=== PATIENT | female | born 1960 | race Caucasian/White ===

== ENCOUNTER → 2017-03-06 | Outpatient (CLI) | payer OTHER ==
--- NOTE | 2017-03-06 10:34 | REPMRS ---
Patient History The patient states she had a clinical breast exam in January 2017.Patient is postmenopausal. No known family history of cancer. 15 pound weight gain since last mammogram. Digital Mammo Screening Bilat: March 06, 2017 - Exam #: [id number] Bilateral CC and MLO view(s) were taken. Technologist: Elise Luu, Technologist Prior study comparison: 2014, digital bilateral screening mammo, performed at [facility]. FINDINGS: The breast tissue is heterogeneously dense. This may lower the sensitivity of mammography. There has been no change in the appearance of the mammogram from the prior studies. There is a moderate amount of residual fibroglandular tissue which is fairly symmetric. There is no interval development of dominant mass, areas of architectural distortion, or clustered microcalcification typical of malignancy. ASSESSMENT: BI-RADS/ACR category 1 mammogram. Negative. Recommendation Routine screening mammogram in 1 year (for women over age 40). This mammogram was interpreted with the aid of an FDA-approved computer-aided dectection system. Electronically Signed By: Contreras Ojeda MD 03/06/17 [id number]
== END ==
LOC: M RAD 08:07
PROVIDERS: ATTEND Nurse Practitioner Adult Health
DX: Z12.31 Encounter for screening mammogram for malignant neoplasm of breast (principal)

== ENCOUNTER → 2018-03-07 | Outpatient (CLI) | payer OTHER | LOC: M RAD 08:41 | DX: Z12.31 Encounter for screening mammogram for malignant neoplasm of breast (principal) | CPT/HCPCS: 77067 ==

== ENCOUNTER → 2019-02-25 | Outpatient (REF) | payer OTHER | LOC: M SFHCLERA 08:24 | PROVIDERS: ATTEND Family Medicine | DX: Z13.220 Encounter for screening for lipoid disorders (principal); Z53.9 Procedure and treatment not carried out, unspecified reason ==

== ENCOUNTER → 2019-03-10 | Outpatient (CLI) | payer OTHER ==
[2019-03-10 08:28] LABS: CHOLESTEROL RISK RATIO 2.289 (<5)
--- NOTE | 2019-03-10 10:58 | REPMRS ---
Patient History The patient states she has not had a clinical breast exam in over a year. No known family history of cancer. Digital Mammo Screening Bilat: March 10, 2019 - Exam #: [id number] Bilateral CC and MLO view(s) were taken. Technologist: Elise Luu, Technologist Prior study comparison: March 07, 2018, bilateral digital mammo screening bilat performed at [facility]. March 06, 2017, bilateral digital mammo screening bilat performed at [facility]. FINDINGS: The breast tissue is heterogeneously dense. This may lower the sensitivity of mammography. There is a moderate amount of heterogeneously dense fibroglandular tissue which is fairly symmetric. There is no interval development of dominant mass, architectural distortion, or grouped microcalcification typical of malignancy. There has been no change in the appearance of the mammogram from the prior studies. 3-D tomosynthesis shows no additional findings. Assessment: BI-RADS/ACR category 1 mammogram. Negative Mammogram. Recommendation Routine screening mammogram of both breasts in 1 year (for women over age 40). This patient's Lifetime Breast Cancer RIsk is estimated at 7.9 %. This mammogram was interpreted with the aid of an FDA-approved computer-aided dectection system. Electronically Signed By: Grabiel Prakash MD 03/10/19 [id number]
--- NOTE | 2019-03-10 11:04 | REP ---
Urinary tract sonography: History: Incidental cyst left kidney noted on unrelated imaging test. Reevaluation. No comparison imaging is available. Sonographic findings: Scanning at the level urinary bladder shows no abnormality. Visualized bladder fitch are smooth. Renal cortical echogenicity pattern is normal and contours are smooth. There is a cyst in the right mid kidney measuring 1.8 x 1.7 x 1.7 cm. No mass lesion is seen on either side. No left renal cyst is observed. No hydronephrosis is seen. There is a hyperechoic focus 2.6 mm in diameter in the left mid kidney which could be an intrarenal calculus. Left renal dimensions are 10.2 x 5.2 x 5.0 cm. Right kidney measures 10.7 x 4.8 x 3.4 cm. Impression: 1.8 cm cyst right mid kidney. Question 3 mm intrarenal calculus left mid kidney. No hydronephrosis or other abnormality. Electronically Signed by Joe Prakash MD 03/10/2019 07:32 P
== END ==
LOC: M RAD 07:16 → M LAB 07:16
PROVIDERS: ATTEND Family Medicine
DX: Z12.31 Encounter for screening mammogram for malignant neoplasm of breast (principal)

== ENCOUNTER → 2020-06-07 | Outpatient (CLI) | payer OTHER ==
--- NOTE | 2020-06-07 09:36 | REPMRS ---
Patient History The patient states she had a clinical breast exam in April 2020. No known family history of cancer. Digital Woman Screen Mammo: June 07, 2020 - Exam #: [id number] Bilateral CC and MLO view(s) were taken. Technologist: RT Deion Prior study comparison: March 10, 2019, bilateral digital mammo screening bilat, performed at [facility]. March 07, 2018, bilateral digital mammo screening bilat, performed at [facility]. March 06, 2017, bilateral digital mammo screening bilat, performed at [facility]. FINDINGS: The breast tissue is heterogeneously dense. This may lower the sensitivity of mammography. The Volpara volumetric breast density category is: C. There is a moderate amount of heterogeneously dense fibroglandular tissue which is fairly symmetric. There is no interval development of dominant mass, architectural distortion, or grouped microcalcification typical of malignancy. There has been no change in the appearance of the mammogram from the prior studies. 3-D tomosynthesis shows no additional findings. Assessment: BI-RADS/ACR category 1 mammogram. Negative Mammogram. Recommendation Routine screening mammogram of both breasts in 1 year (for women over age 40). This patient's Lifetime Breast Cancer RIsk is estimated at 7.7 %. This mammogram was interpreted with the aid of an FDA-approved computer-aided dectection system. Electronically Signed By: Grabiel Prakash MD 06/07/20 0998
== END ==
LOC: M WHC 07:48
PROVIDERS: ATTEND Nurse Practitioner Adult Health
DX: Z01.419 Encounter for gynecological examination (general) (routine) without abnormal findings (principal); Z12.31 Encounter for screening mammogram for malignant neoplasm of breast

== ENCOUNTER → 2020-09-01 | Outpatient (CLI) | payer OTHER ==
[~2020-09-01] MED LIST: D31000CA4 PO
== END ==
LOC: M LABSMTC 11:31
PROVIDERS: ATTEND Anesthesiology
DX: Z01.812 Encounter for preprocedural laboratory examination (principal); Z20.822 Contact with and (suspected) exposure to COVID-19

== ENCOUNTER 2020-09-06 07:39 | Day surgery (SDC) | payer OTHER ==
[~2020-09-06] VITALS: Ht 177.8 cm; Wt 79.4 kg
[~2020-09-06 07:39] MED LIST changes: +LIDOCAINE 2% 100MG/5ML SDV (FOR ANES.) As Ordered ONE; +NS 1,000 ML IV ONE; +propofoL 200 MG/20 ML VIAL As Ordered ONE
--- NOTE | 2020-09-06 09:35 | ROOR ---
Patient Name: Terra Short Procedure Date: 09/06/2020 8:48 AM Date of : 1960 Age: 59 Room: [facility] Gender: Female Note Status: Finalized Procedure: Colonoscopy Indications: Screening for colorectal malignant neoplasm Providers: Dominick Lomeli MD Referring MD: PARTICIA ARCINIEGA MD Requesting Provider: Medicines: Monitored Anesthesia Care Complications: No immediate complications. Procedure: Pre-Anesthesia Assessment: - Prior to the procedure, a History and Physical was performed, and patient medications and allergies were reviewed. The patient is competent. The risks and benefits of the procedure and the sedation options and risks were discussed with the patient. All questions were answered and informed consent was obtained. Patient identification and proposed procedure were verified by the physician, the nurse and the anesthesiologist in the procedure room. Mental Status Examination: alert and oriented. Airway Examination: normal oropharyngeal airway and neck mobility. Respiratory Examination: clear to auscultation. CV Examination: normal. Prophylactic Antibiotics: The patient does not require prophylactic antibiotics. Prior Anticoagulants: The patient has taken no previous anticoagulant or antiplatelet agents. ASA Grade Assessment: II - A patient with mild systemic disease. After reviewing the risks and benefits, the patient was deemed in satisfactory condition to undergo the procedure. The anesthesia plan was to use monitored anesthesia care (MAC). Immediately prior to administration of medications, the patient was re-assessed for adequacy to receive sedatives. The heart rate, respiratory rate, oxygen saturations, blood pressure, adequacy of pulmonary ventilation, and response to care were monitored throughout the procedure. The physical status of the patient was re-assessed after the procedure. The Colonoscope was introduced through the anus and advanced to the terminal ileum, with identification of the appendiceal orifice and IC valve. The colonoscopy was performed without difficulty. The patient tolerated the procedure well. The quality of the bowel preparation was good. The terminal ileum, ileocecal valve, appendiceal orifice, and rectum were photographed. Scope insertion time was 3 minutes. Scope withdrawal time was 9 minutes. The total duration of the procedure was 12 minutes. Findings: The perianal and digital rectal examinations were normal. The terminal ileum appeared normal. A 10 mm polyp was found in the ascending colon. The polyp was sessile. The polyp was removed with a cold snare. Resection and retrieval were complete. Verification of patient identification for the specimen was done by the physician and nurse using the patient's name, date and medical record number. Estimated blood loss was minimal. To close a defect after polypectomy, one hemostatic clip was successfully placed. There was no bleeding at the end of the procedure. A few small-mouthed diverticula were found in the sigmoid colon. There was no evidence of diverticular bleeding. Non-bleeding external and internal hemorrhoids were found during retroflexion. The hemorrhoids were medium-sized. Impression: - The examined portion of the ileum was normal. - One 10 mm polyp in the ascending colon, removed with a cold snare. Resected and retrieved. Clip was placed. - Mild diverticulosis in the sigmoid colon. There was no evidence of diverticular bleeding. - Non-bleeding external and internal hemorrhoids. Recommendation: - Patient has a contact number available for emergencies. The signs and symptoms of potential delayed complications were discussed with the patient. Return to normal activities tomorrow. Written discharge instructions were provided to the patient. - High fiber diet. - Continue present medications. - Await pathology results. - Repeat colonoscopy in 3 - 5 years for surveillance based on pathology results. - Telephone GI clinic for pathology results in 2 weeks. - Return to primary care physician. Procedure Code(s): --- Professional --- 14504, Colonoscopy, flexible; with removal of tumor(s), polyp(s), or other lesion(s) by snare technique Diagnosis Code(s): --- Professional --- Z12.11, Encounter for screening for malignant neoplasm of colon K64.8, Other hemorrhoids K63.5, Polyp of colon K57.30, Diverticulosis of large intestine without perforation or abscess without bleeding CPT copyright 2019 [employer]. All rights reserved. The codes documented in this report are preliminary and upon mock up builder review may be revised to meet current compliance requirements. Dominick Lomeli MD Dominick Lomeli MD 09/06/2020 9:35:02 AM Electronically signed by Dominick Lomeli MD Number of Addenda: 0 Note Initiated On: 09/06/2020 8:48 AM Estimated Blood Loss: Estimated blood loss was minimal.
[2020-09-06 09:45] VITALS: BP 130/82
== END 2020-09-06 09:58 | disposition home or self-care (01) ==
LOC: M OPP 07:39
PROVIDERS: ATTEND Internal Medicine Gastroenterology
DX: Z12.11 Encounter for screening for malignant neoplasm of colon (principal); D12.2 Benign neoplasm of ascending colon; K57.30 Diverticulosis of large intestine without perforation or abscess without bleeding; K64.8 Other hemorrhoids; N28.1 Cyst of kidney, acquired; Z88.0 Allergy status to penicillin; Z88.2 Allergy status to sulfonamides; Z91.011 Allergy to milk products; Z91.018 Allergy to other foods; Z91.030 Bee allergy status; Z79.899 Other long term (current) drug therapy; Z83.79 Family history of other diseases of the digestive system

== ENCOUNTER 2020-09-19 08:43 | Emergency (ER) | payer OTHER ==
[~2020-09-19] VITALS: Ht 172.7 cm; Wt 81.7 kg
[~2020-09-19 08:43] MED LIST changes: -LIDOCAINE 2% 100MG/5ML SDV (FOR ANES.) As Ordered ONE; -NS 1,000 ML IV ONE; -propofoL 200 MG/20 ML VIAL As Ordered ONE
--- OUTSIDE RECORDS SUMMARY | 2020-09-19 08:49 | CCD | Continuity of Care Document ---
Author Author Terra [facility]GUYEN [facility]- [facility] Organization Unknown Address [address], [address] [place] [address] Phone [phone] Care Team Providers Care Day Care Home Mother Name Role Phone Cami Knowles P.A.-C AUTM [phone] David Pettit M.D. AUTM [phone] Problems Description No Active Problems Social History Type Date Description Comments Sex Unknown ETOH Use Denies alcohol use Tobacco Use Start: Unknown Patient has never smoked Allergies, Adverse Reactions, Alerts Active Allergies Reaction Severity Comments Date Penicillin 01/20/2018 Sulfa Antibiotics 01/20/2018 Bee Sting 08/23/2020 Medications Active Medications SIG Qnty Indications Ordering Provide r Date Suprep Bowel Prep Kit 17.5-3.13-1.6GM/177ML Solution take per doctor's bowel prep instructions. 354ml Z12.1 1 Justice Grady MD 08/23/[address] take 4 tabs by mouth prior to procedure per instructions. 4tabs Z12.11 Justice Grady MD 08/23/2020 Vitamin D (Cholecalciferol) 25mcg (1000 Ut) Capsules Daily Unknown Immunizations Description No Information Available Vital Signs Date Vital Result Comment 08/23/2020 10:12am BP Systolic 120 mmHg BP Diastolic 82 mmHg Height 70 inches 5'10" Weight 176.00 lb BMI (Body Mass Index) 25.3 kg/m2 Wallace Body Weight 150 lb Weight 79.834 kg BSA (Body Surface Area) 1.98 m2 04/02/2018 8:19am BP Systolic 134 mmHg BP Diastolic 82 mmHg Heart Rate 82 /min O2 % BldC Oximetry 98 % Room Air Height 70 inches 5'10" Weight 180.00 lb BMI (Body Mass Index) 25.8 kg/m2 Wallace Body Weight 150 lb Weight 81.648 kg BSA (Body Surface Area) 2.00 m2 Results Description No Information Available Procedures Description No Information Available Medical Devices Description No Information Available Encounters Description No Information Available Assessments Date Code Description Provider 08/23/2020 Z12.11 Encounter for screening for luisa gnant neoplasm of colon RAULITO Slade Plan of Treatment 08/23/2020 - RAULITO Slade* Z12.11 Encounter for screening for malignant neoplasm of colon * * New Medication:* Suprep Bowel Prep Kit 17.5-3.13-1.6 GM/177ML * Dulcolax 5 mg * New Orders:* Colonoscopy, Ordered: 08/23/20 * Comments:* Will arrange for colonoscopy. Reviewed risks and benefits of the procedure, as well as other options, with the patient. Bowel prep procedure was discussed with patient, as well as risks and side effects associated with the bowel prep. Patient verbalized understanding of all of the above and is in agreement to proceed. Patient will seek medical attention for any acute changes. Will monitor. * Follow up:* As scheduled, sooner if needed. Functional Status Functional Condition Comment Date Status Independent with all ADL's Activ e Independent with all IADL's Acti ve Mental Status Mental Condition Comment Date Status None Active Can understand information Activ e Referrals Refer to Reason for Referral Status Appt Date Dominick Lomeli M.D. [facility]SULT Created 08/[address] [place] [address], [address] [place] [address] [phone]
--- OUTSIDE RECORDS SUMMARY | 2020-09-19 08:49 | CCD ---
Author Author [facility] Organization [facility] Address Unknown Phone Unavailable Care Team Providers [employer] Name Role Phone David Araya Unavailable Unavailable David Araya Unavailable Unavailable David Araya Unavailable Unavailable David Araya Unavailable Unavailable Knowles, M Cami PA-C Unavailable Unavailable Knowles, M Cami PA-C Unavailable Unavailable Knowles, M Cami PA-C Unavailable Unavailable Knowles, M Cami PA-C Unavailable Unavailable Knowles, M Cami PA-C Unavailable Unavailable Knowles, M Cami PA-C Unavailable Unavailable Knowles, M Cami PA-C Unavailable Unavailable Knowles, M Cami PA-C Unavailable Unavailable Knowles, M Cami PA-C Unavailable Unavailable Knowles, M Cami PA-C Unavailable Unavailable Knowles, M Cami PA-C Unavailable Unavailable Knowles, M Cami PA-C Unavailable Unavailable Knowles, M Cami PA-C Unavailable Unavailable Knowles, M Cami PA-C Unavailable Unavailable Knowles, M Cami PA-C Unavailable Unavailable Knowles, M Cami PA-C Unavailable Unavailable Knowles, M Cami PA-C Unavailable Unavailable Knowles, M Cami PA-C Unavailable Unavailable Knowles, M Cami PA-C Unavailable Unavailable Knowles, M Cami PA-C Unavailable Unavailable Knowles, M Cami PA-C Unavailable Unavailable Knowles, M Cami PA-C Unavailable Unavailable Knowles, M Cami PA-C Unavailable Unavailable Knowles, M Cami PA-C Unavailable Unavailable Knowles, M Cami PA-C Unavailable Unavailable Knowles, M Cami PA-C Unavailable Unavailable Knowles, M Cami PA-C Unavailable Unavailable Knowles, M Cami PA-C Unavailable Unavailable Knowles, M Cami PA-C Unavailable Unavailable Knowles, M Cami PA-C Unavailable Unavailable Knowles, M Caim PA-C Unavailable Unavailable Knowles, M Cami PA-C Unavailable Unavailable Knowles, M Cami PA-C Unavailable Unavailable ARCINIEGAPATRICIA OTERO MD Unavailable Unavailable ARCINIEGAPATRICIA OTERO MD Unavailable Unavailable ARCINIEGAPATRICIA OTERO MD Unavailable Unavailable ARCINIEGAPATRICIA OTERO MD Unavailable Unavailable ARCINIEGAPATRICIA OTERO MD Unavailable Unavailable ARCINIEGAPATRICIA OTERO MD Unavailable Unavailable ARCINIEGAPATRICIA OTERO MD Unavailable Unavailable ARCINIEGAPATRICIA OTERO MD Unavailable Unavailable ARCINIEGAPATRICIA OTERO MD Unavailable Unavailable ARCINIEGAPATRICIA OTERO MD Unavailable Unavailable ARCINIEGAPATRICIA OTERO MD Unavailable Unavailable ARCINIEGAPATRICIA OTERO MD Unavailable Unavailable ARCINIEGAPATRICIA OTERO MD Unavailable Unavailable ARCINIEGAPATRICIA OTERO MD Unavailable Unavailable ARCINIEGAPATRICIA OTERO MD Unavailable Unavailable ARCINIEGAPATRICIA OTERO MD Unavailable Unavailable ARCINIEGAPATRICIA OTERO MD Unavailable Unavailable ARCINIEGAPATRICIA OTERO MD Unavailable Unavailable ARCINIEGAPATRICIA OTERO MD Unavailable Unavailable ARCINIEGAPATRICIA OTERO MD Unavailable Unavailable ARCINIEGAPATRICIA OTERO MD Unavailable Unavailable ARCINIEGAPATRICIA OTERO MD Unavailable Unavailable ARCINIEGAPATRICIA OTERO MD Unavailable Unavailable ARCINIEGAPATRICIA OTERO MD Unavailable Unavailable ARCINIEGAPATRICIA OTERO MD Unavailable Unavailable ARCINIEGAPATRICIA OTERO MD Unavailable Unavailable ARCINIEGAPATRICIA MD Unavailable Unavailable ARCINIEGAPATRICIA MD Unavailable Unavailable ARCINIEGAPATRICIA OTERO MD Unavailable Unavailable ARCINIEGAPATRICIA OTERO MD Unavailable Unavailable ARCINIEGAPATRICIA OTERO MD Unavailable Unavailable ARCINIEGAPATRICIA OTERO MD Unavailable Unavailable ARCINIEGAPATRICIA OTERO MD Unavailable Unavailable ARCINIEGAPATRICIA MD Unavailable Unavailable ARCINIEGAPATRICIA OTERO MD Unavailable Unavailable ARCINIEGAPATRICIA MD Unavailable Unavailable ARCINIEGAPATRICIA MD Unavailable Unavailable ARCINIEGAPATRICIA MD Unavailable Unavailable ARCINIEGAPATRICIA MD Unavailable Unavailable ARCINIEGAPATRICIA MD Unavailable Unavailable ARCINIEGAPATRICIA MD Unavailable Unavailable ARCINIEGAPATRICIA MD Unavailable Unavailable ARCINIEGA, PATRICIA MD Unavailable Unavailable ARCINIEGA PATRICIA MD Unavailable Unavailable ARCINIEGA PATRICIA MD Unavailable Unavailable ARCINIEGA, PATRICIA MD Unavailable Unavailable ARCINIEGA PATRICIA MD Unavailable Unavailable ARCINIEGA PATRICIA MD Unavailable Unavailable ARCINIEGA PATRICIA MD Unavailable Unavailable ARCINIEGA PATRICIA MD Unavailable Unavailable ARCINIEGA PATRICIA MD Unavailable Unavailable ARCINIEGA PATRICIA MD Unavailable Unavailable ARCINIEGA PATRICIA MD Unavailable Unavailable ARCINIEGA PATRICIA MD Unavailable Unavailable ARCINIEGA PATRICIA MD Unavailable Unavailable ARCINIEGA PATRICIA MD Unavailable Unavailable ARCINIEGA PATRICIA MD Unavailable Unavailable ARCINIEGA PATRICIA MD Unavailable Unavailable ARCINIEGA PATRICIA MD Unavailable Unavailable ARCINIEGA PATRICIA MD Unavailable Unavailable ARCINIEGA PATRICIA MD Unavailable Unavailable ARCINIEGA PATRICIA MD Unavailable Unavailable ARCINIEGA PATRICIA MD Unavailable Unavailable ARCINIEGA PATRICIA MD Unavailable Unavailable ARCINIEGAPATRICIA MD Unavailable Unavailable ARCINIEGA PATRICIA MD Unavailable Unavailable ARCINIEGA, PATRICIA MD Unavailable Unavailable ARCINIEGA, PATRICIA MD Unavailable Unavailable ARCINIEGA, PATRICIA MD Unavailable Unavailable LAU, REJI LIU TRUCK RENTAL SERVICE ATTENDANT Unavailable Unavailable LAU, REJI LIU TRUCK RENTAL SERVICE ATTENDANT Unavailable Unavailable LAU, REJI LIU TRUCK RENTAL SERVICE ATTENDANT Unavailable Unavailable LAU, REJI LIU TRUCK RENTAL SERVICE ATTENDANT Unavailable Unavailable LAU, REJI LIU TRUCK RENTAL SERVICE ATTENDANT Unavailable Unavailable LAU, REJI LIU TRUCK RENTAL SERVICE ATTENDANT Unavailable Unavailable LAU, REJI LIU TRUCK RENTAL SERVICE ATTENDANT Unavailable Unavailable LAU, REJI LIU TRUCK RENTAL SERVICE ATTENDANT Unavailable Unavailable LAU, REJI LIU TRUCK RENTAL SERVICE ATTENDANT Unavailable Unavailable LAU, REJI LIU TRUCK RENTAL SERVICE ATTENDANT Unavailable Unavailable LAU, REJI LIU TRUCK RENTAL SERVICE ATTENDANT Unavailable Unavailable LAU, REJI LIU TRUCK RENTAL SERVICE ATTENDANT Unavailable Unavailable LAU, REJI LIU TRUCK RENTAL SERVICE ATTENDANT Unavailable Unavailable LAU, REJI LIU TRUCK RENTAL SERVICE ATTENDANT Unavailable Unavailable LAU, REJI LIU TRUCK RENTAL SERVICE ATTENDANT Unavailable Unavailable LAU, REJI LIU TRUCK RENTAL SERVICE ATTENDANT Unavailable Unavailable LAU, REJI LIU TRUCK RENTAL SERVICE ATTENDANT Unavailable Unavailable LAU, REJI LIU TRUCK RENTAL SERVICE ATTENDANT Unavailable Unavailable LAU, REJI LIU TRUCK RENTAL SERVICE ATTENDANT Unavailable Unavailable LAU, REJI LIU TRUCK RENTAL SERVICE ATTENDANT Unavailable Unavailable LAU, REJI LIU TRUCK RENTAL SERVICE ATTENDANT Unavailable Unavailable LAU, REJI LIU TRUCK RENTAL SERVICE ATTENDANT Unavailable Unavailable LAU, REJI LIU TRUCK RENTAL SERVICE ATTENDANT Unavailable Unavailable KnowlesAshwin Cami PA-C Unavailable Unavailable KnowlesAshwin Cami PA-C Unavailable Unavailable Knowles M Cami PA-C Unavailable Unavailable Knowles M Cami PA-C Unavailable Unavailable Knowles, M Cami PA-C Unavailable Unavailable Knowles, M Cami PA-C Unavailable Unavailable Knowles, M Cami PA-C Unavailable Unavailable Knowles, M Cami PA-C Unavailable Unavailable Knowles, M Cami PA-C Unavailable Unavailable Knowles, M Cami PA-C Unavailable Unavailable Knowles, M Cami PA-C Unavailable Unavailable Knowles, M Cami PA-C Unavailable Unavailable Knowles, M Cami PA-C Unavailable Unavailable Knowles, M Cami PA-C Unavailable Unavailable Knowles, M Cami PA-C Unavailable Unavailable Knowles, M Cami PA-C Unavailable Unavailable Knowles, M Cami PA-C Unavailable Unavailable Knowles, M Cami PA-C Unavailable Unavailable Knowles, M Cami PA-C Unavailable Unavailable Knowles, M Cami PA-C Unavailable Unavailable Knowles, M Cami PA-C Unavailable Unavailable Knowles, M Cami PA-C Unavailable Unavailable Knowles, M Cami PA-C Unavailable Unavailable Knowles, M Cami PA-C Unavailable Unavailable Knowles, M Cami PA-C Unavailable Unavailable Knowles, M Cami PA-C Unavailable Unavailable Knowles, M Cami PA-C Unavailable Unavailable Knowles, M Cami PA-C Unavailable Unavailable Knowles, M Cami PA-C Unavailable Unavailable Knowles, M Cami PA-C Unavailable Unavailable Knowles, M Cami PA-C Unavailable Unavailable Knowles, M Cami PA-C Unavailable Unavailable Knowles, M Cami PA-C Unavailable Unavailable Re-disclosure Warning The records that you are about to access may contain information from federally-assisted alcohol or drug abuse programs. If such information is present, then the following federally mandated warning applies: This information has been disclosed to you from records protected by federal confidentiality rules (42 CFR part 2). The federal rules prohibit you from making any further disclosure of this information unless further disclosure is expressly permitted by the written consent of the person to whom it pertains or as otherwise permitted by 42 CFR part 2. A general authorization for the release of medical or other information is NOT sufficient for this purpose. The Federal rules restrict any use of the information to criminally investigate or prosecute any alcohol or drug abuse patient.The records that you are about to access may contain highly sensitive health information, the redisclosure of which is protected by Article 27-F of the [place] State Public Health law. If you continue you may have access to information: Regarding HIV / AIDS; Provided by facilities licensed or operated by the [facility] Office of Mental Health; or Provided by the [facility] Office for People With Developmental Disabilities. If such information is present, then the following [facility] mandated warning applies: This information has been disclosed to you from confidential records which are protected by state law. State law prohibits you from making any further disclosure of this information without the specific written consent of the person to whom it pertains, or as otherwise permitted by law. Any unauthorized further disclosure in violation of state law may result in a fine or senior living sentence or both. A general authorization for the release of medical or other information is NOT sufficient authorization for further disc losure. Allergies and Adverse Reactions Type Description Substance Reaction Status Data Source(s ) Drug allergy BEE VENOM BEE VENOM SWELLING [facility] CLASS PENICILLINS (CLASS) PENICILLINS (CLASS) RASH SWELLING [facility] CLASS SULFA (sulfonamide) SULFA (sulfonamide) RASH [facility] Family History Family Member Name Family Member Gender Family Member Status Date o f Status Description Data Source(s) Unknown Female Problem [facility] ([facility]) Encounters Encounter Providers Location Date Indications Data Source(s ) Outpatient Attender: Cami COOKCConsultant: PATRICIA KING MD 06/06/2020 08:41:00 AM EST - 06/06/2020 08:41:[address] [facility] [place] Outpatient Attender: LIU LAU NPConsultant: PATRICIA ARCINIEGA MD 05/19/2020 09:01:00 AM EDT - 05/19/2020 09:01:00 AM EDT [facility] Outpatient Attender: LIU LAU NP Family Practice 05/19/2020 09 :00:00 AM EDT [facility] ([facility]) Outpatient Attender: Cami COOKCConsultant: PATRICIA KING MD 05/06/2020 09:10:00 AM EDT - 05/06/2020 09:10:00 AM EDT [facility] Outpatient Attender: Cami Knowles PA-C Family Practice 03/29 09:00:00 AM EDT [facility] ([facility] Outpatient Attender: Cami COOKCConsultant: PATRICIA KING MD 04/14/2020 08:56:00 AM EDT - 04/14/2020 08:56:00 AM EDT [facility] Outpatient Attender: David Araya PAConsultant: PATRICIA Finch 02/01/2020 09:44:00 AM EDT - 02/01/2020 09:44:00 AM EDT [facility] Immunizations Vaccine Date Status Description Data Source(s) As of March 1999, a 2-dose hepatitis B schedule for adolescents (11-15 year olds) was FDA approved for [employer]'s Recombivax HB adult formulation. Use code 43 for the 2-dose. This code should be used for any use of standard adult formulation of hepatitis B vaccine. 05/06/2020 10:11:00 AM EDT completed [facility] ([facility]) New in 2011. IIV4 05/06/2020 10:10:00 AM EDT completed [facility] ([facility]) Tdap 04/14/2020 10:02:00 AM EDT completed M [facility] ([facility]) Medications Medication Brand Name Start Date Product Form Dose Route Admi nistrative Instructions Pharmacy Instructions Status Indications Reaction Description Data Source(s) Suprep Bowel Prep Kit Suprep Bowel Prep Kit 08/23/2020 12:00:00 AM EST active [facility] ([facility], ) Bisacodyl 5 MG Delayed Release Oral Tablet [Dulcolax] Dulcol ax 08/23/2020 12:00:00 AM EST ORAL active M [facility] ([facility], ) Cholecalciferol 52969 UNT Oral Tablet Vitamin D3 Ultra Poten cy 04/19/2020 12:00:00 AM EDT ORAL active M [facility] ([facility]) No Active Medications 04/14/2020 12:00:00 AM EDT completed [facility] ([facility]) Insurance Providers Payer name Policy type / Coverage type Policy ID Covered democrat ID Covered democrat's relationship to alfaro Policy Alfaro Plan Information [facility] COMMUNITY PLAN [facility] [id number] [facility] COMMUNTY PLAN [id number] 18 [id number] [facility] COMMUNITY PLAN XIX [id number] 18 [id number] [facility] O [id number] S [id number] ANSI-Medicaid [id number] ANSI-Commercial [id number] ANSI-Medicaid [id number] [facility] [id number] [facility] [id number] SP [id number] [facility] Communty Plan Medicaid [id number] Self [id number] UNHC AMERICHOICE XIX -HMO [id number] 18 [id number] [facility] Health Maintenance Organization (HMO) [id number] Self [id number] [facility] O [id number] S [id number] [employer] COMMUNITY PLAN [facility] [id number] SP [id number] [employer] COMMUNITY PLAN [facility] [id number] SP [id number] [facility] COMMUNTY PLAN MC [id number] 18 [id number] [facility] Communty Plan Medicaid [id number] Self [id number] UNHC COMMUNITY PLAN XIX [id number] 18 [id number] [facility] Communty Plan Medicaid [id number] Self [id number] UNHC COMMUNITY PLAN MC [id number] 18 [id number] Un[employer] Community Plan Medicaid [id number] Self [id number] UNHC COMMUNITY PLAN MCDO [id number] SP [id number] Un[employer] Community Plan Medicaid [id number] Self [id number] Un[employer] Community Plan Medicaid [id number] Self [id number] Un[employer] Community Plan Medicaid Self UNHC AMERICHOICE HMO [id number] 18 [id number] [facility] [place]UE [facility] [id number] Problems, Conditions, and Diagnoses Code Display Name Description Problem Type Effective Dates Data Source(s) Z23 Encounter for immunization Encounter for immunization Diagnosis 06/06/2020 08:41:00 AM EST [facility] [id number] Encounter for gynecological examination (general) (routine) without abnormal findings Encounter for gynecological examination (general) (routine) without abnormal findings Diagnosis 05/19/2020 09:01:00 AM EDT [facility] Z0184 Encounter for antibody response examinat ion Encounter for antibody response examination Diagnosis 04/14/2020 08:56:00 AM EDT [facility] Z0000 Encounter for general adult medical exam ination without abnormal findings Encounter for general adult medical examination without abnormal findings Diagnosis 04/14/2020 08:56:00 AM EDT [facility] Z1389 Encounter for screening for other disord er Encounter for screening for other disorder Diagnosis 04/14/2020 08:56:00 AM EDT [facility] Z1211 Encounter for screening for malignant ne oplasm of colon Encounter for screening for malignant neoplasm of colon Diagnosis 04/14/2020 08:56:0 0 AM EDT [facility] 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 Diagnosis 04/14/2020 08:56:00 AM EDT [facility] [id number] Varicose veins of bilateral lower extrem ities with other complications Varicose veins of bilateral lower extremities with other complications Diagnosis 04/14/2020 08:56:00 AM EDT [facility] R5383 Other fatigue Other fatigue Diagnosis 04/14/2020 08:56:00 AM EDT [facility] [id number] Bitten or stung by nonvenomo us insect and other nonvenomous arthropods, subsequent encounter Bitten or stung by nonvenomous insect an d other nonvenomous arthropods, subsequent encounter Diagnosis 02/01/2020 09:44:00 AM EDT [facility] [id number] Insect bite (nonvenomous), right lower l eg, subsequent encounter Insect bite (nonvenomous), right lower leg, subsequent encounter Diagnosis 02/01/2020 09:44:00 AM EDT [facility] Surgeries/Procedures Procedure Description Date Indications Data Source(s) Brief Emotional/Behav Assessment W/ Scoring Doc Per Standard Inst 04/14/2020 12:00:00 AM EDT [facility] ([facility]) Admin Patient Focused Health Risk Assessment Instrument 04/14/2020 12:00:00 AM EDT [facility] ([facility]) Results ID Date Data Source [id number] 09/01/2020 01:00:00 PM EST [facility] Name Value Range Interpretation Code Description Data Cristina rce(s) Supporting Document(s) SARS coronavirus 2 RNA Not Detected [facility] [place] This lab was ordered by [facility] and reported by [facility]. ID Date Data Source [id number] 05/19/2020 09:48:00 AM EDT [facility] ([facility]) Name Value Range Interpretation Code Description Data Cristina rce(s) Supporting Document(s) Mammo Screening Bilateral with CAD Laboratory test result [facility] ([facility]) ID Date Data Source [id number] 04/14/2020 03:18:00 PM EDT [facility] ([facility]) Name Value Range Interpretation Code Description Data Cristina rce(s) Supporting Document(s) Mammo Screening Bilateral with CAD Laboratory test result [facility] ([facility]) ID Date Data Source [id number] 04/14/2020 10:01:00 AM EDT [facility] ([facility]) Name Value Range Interpretation Code Description Data Cristina rce(s) Supporting Document(s) Culture Urine Laboratory test result [facility] ([facility]) {SOURCE: Random Void~NURSE COLLECTED? N Is patient fasting? N Is patient fasting? N IDENTIFY SPECIMEN ACUTE OR CONVALESCENT: UNK ID Date Data Source [id number] 04/14/2020 10:01:00 AM EDT [facility] ([facility]) Name Value Range Interpretation Code Description Data Cristina rce(s) Supporting Document(s) C reactive protein [Mass/volume] in Serum or Plasma by High sensitivity method 2.47 mg/L 1.00-3.00 [facility] ([facility]) {SOURCE: Random Void~NURSE COLLECTED? N Is patient fasting? N Is patient fasting? N IDENTIFY SPECIMEN ACUTE OR CONVALESCENT: UNK Hepatitis B virus surface Ag [Presence] in Serum or Pl asma by Immunoassay Laboratory test result [facility] ([facility]) {SOURCE: Random Void~NURSE COLLECTED? N Is patient fasting? N Is patient fasting? N IDENTIFY SPECIMEN ACUTE OR CONVALESCENT: UNK Rubella virus IgG Ab [Units/volume] in Serum 3.070 IU/ml [facility] ([facility]) {SOURCE: Random Void~NURSE COLLECTED? N Is patient fasting? N Is patient fasting? N IDENTIFY SPECIMEN ACUTE OR CONVALESCENT: UNK ID Date Data Source [id number] 04/14/2020 10:01:00 AM EDT [facility] ([facility]) Name Value Range Interpretation Code Description Data Cristina rce(s) Supporting Document(s) Sed Rate 17 mm/hr 0-30 [facility] {SOURCE: Random Void~NURSE COLLECTED? N Is patient fasting? N Is patient fasting? N IDENTIFY SPECIMEN ACUTE OR CONVALESCENT: UNK Sed Rate Reenter 17 [facility] ([facility]) {SOURCE: Random Void~NURSE COLLECTED? N Is patient fasting? N Is patient fasting? N IDENTIFY SPECIMEN ACUTE OR CONVALESCENT: UNK ID Date Data Source [id number] 04/14/2020 10:01:00 AM EDT [facility] ([facility]) Name Value Range Interpretation Code Description Data Cristina rce(s) Supporting Document(s) Rubella virus IgM Ab [Units/volume] in Serum Laboratory test result 0.0-19.9 [facility] {SOURCE: Random Void~NURSE COLLECTED? N Is patient fasting? N Is patient fasting? N IDENTIFY SPECIMEN ACUTE OR CONVALESCENT: UNK Measles virus IgG Ab [Titer] in Serum by Immunofluores cence Laboratory test result [facility] ([facility]) {SOURCE: Random Void~NURSE COLLECTED? N Is patient fasting? N Is patient fasting? N IDENTIFY SPECIMEN ACUTE OR CONVALESCENT: UNK Mumps virus Ab [Units/volume] in Serum Laboratory test result [facility] ([facility]) {SOURCE: Random Void~NURSE COLLECTED? N Is patient fasting? N Is patient fasting? N IDENTIFY SPECIMEN ACUTE OR CONVALESCENT: UNK ID Date Data Source [id number] 04/14/2020 10:01:00 AM EDT [facility] ([facility]) Name Value Range Interpretation Code Description Data Cristina rce(s) Supporting Document(s) Hepatitis B virus surface Ab [Units/volume] in Serum b y Radioimmunoassay (CANDIDO) Laboratory test result [facility] ([facility]) {SOURCE: Random Void~NURSE COLLECTED? N Is patient fasting? N Is patient fasting? N IDENTIFY SPECIMEN ACUTE OR CONVALESCENT: UNK ID Date Data Source [id number] 04/14/2020 10:01:00 AM EDT [facility] ([facility]) Name Value Range Interpretation Code Description Data Cristina rce(s) Supporting Document(s) Z#Other Observations Laboratory test result [facility] ([facility]) Comprehensive Metabo Laboratory test result [facility] ([facility]) {SOURCE: Random Void~NURSE COLLECTED? N Is patient fasting? N Is patient fasting? N IDENTIFY SPECIMEN ACUTE OR CONVALESCENT: UNK Chloride 102 meq/L 98-107 [facility] ([facility]) {SOURCE: Random Void~NURSE COLLECTED? N Is patient fasting? N Is patient fasting? N IDENTIFY SPECIMEN ACUTE OR CONVALESCENT: UNK Potassium 4.1 meq/L 3.6-5.0 [facility] ([facility]) {SOURCE: Random Void~NURSE COLLECTED? N Is patient fasting? N Is patient fasting? N IDENTIFY SPECIMEN ACUTE OR CONVALESCENT: UNK Sodium 138 meq/L 134-153 [facility] ([facility]) {SOURCE: Random Void~NURSE COLLECTED? N Is patient fasting? N Is patient fasting? N IDENTIFY SPECIMEN ACUTE OR CONVALESCENT: UNK BUN 21 mg/dL 7-21 [facility] ([facility]) {SOURCE: Random Void~NURSE COLLECTED? N Is patient fasting? N Is patient fasting? N IDENTIFY SPECIMEN ACUTE OR CONVALESCENT: UNK Glucose 112 mg/dL 65-110 Above high normal [facility] ([facility]) {SOURCE: Random Void~NURSE COLLECTED? N Is patient fasting? N Is patient fasting? N IDENTIFY SPECIMEN ACUTE OR CONVALESCENT: UNK Co2 24 meq/L 22-30 [facility] ([facility]) {SOURCE: Random Void~NURSE COLLECTED? N Is patient fasting? N Is patient fasting? N IDENTIFY SPECIMEN ACUTE OR CONVALESCENT: UNK BUN/Creat 26 8-27 [facility] ([facility]) {SOURCE: Random Void~NURSE COLLECTED? N Is patient fasting? N Is patient fasting? N IDENTIFY SPECIMEN ACUTE OR CONVALESCENT: UNK Creatinine 0.8 mg/dL 0.7-1.5 [facility] ([facility]) {SOURCE: Random Void~NURSE COLLECTED? N Is patient fasting? N Is patient fasting? N IDENTIFY SPECIMEN ACUTE OR CONVALESCENT: UNK Globulin 3.3 GM/DL 2.4-3.2 Above high normal [facility] ([facility]) {SOURCE: Random Void~NURSE COLLECTED? N Is patient fasting? N Is patient fasting? N IDENTIFY SPECIMEN ACUTE OR CONVALESCENT: UNK Albumin 4.4 g/dL 3.9-5.0 [facility] ([facility]) {SOURCE: Random Void~NURSE COLLECTED? N Is patient fasting? N Is patient fasting? N IDENTIFY SPECIMEN ACUTE OR CONVALESCENT: UNK Total Protein 7.7 g/dL 6.3-8.2 [facility] ([facility]) {SOURCE: Random Void~NURSE COLLECTED? N Is patient fasting? N Is patient fasting? N IDENTIFY SPECIMEN ACUTE OR CONVALESCENT: UNK Total Bili Laboratory test result 0.2-1.3 [facility] ([facility]) {SOURCE: Random Void~NURSE COLLECTED? N Is patient fasting? N Is patient fasting? N IDENTIFY SPECIMEN ACUTE OR CONVALESCENT: UNK Calcium 9.7 mg/dL 8.4-10.2 [facility] ([facility]) {SOURCE: Random Void~NURSE COLLECTED? N Is patient fasting? N Is patient fasting? N IDENTIFY SPECIMEN ACUTE OR CONVALESCENT: UNK A/G Ratio 1.3 0.8-2.0 [facility] ([facility]) {SOURCE: Random Void~NURSE COLLECTED? N Is patient fasting? N Is patient fasting? N IDENTIFY SPECIMEN ACUTE OR CONVALESCENT: UNK Sgot/Ast 13 U/L 5-40 [facility] ([facility]) {SOURCE: Random Void~NURSE COLLECTED? N Is patient fasting? N Is patient fasting? N IDENTIFY SPECIMEN ACUTE OR CONVALESCENT: UNK Alkaline Phos 72 U/L 38-126 [facility] ([facility]) {SOURCE: Random Void~NURSE COLLECTED? N Is patient fasting? N Is patient fasting? N IDENTIFY SPECIMEN ACUTE OR CONVALESCENT: UNK Age 59 yrs [facility] ([facility]) {SOURCE: Random Void~NURSE COLLECTED? N Is patient fasting? N Is patient fasting? N IDENTIFY SPECIMEN ACUTE OR CONVALESCENT: UNK Anion Gap 12.0 mmol/L 8.0-16.0 [facility] ([facility]) {SOURCE: Random Void~NURSE COLLECTED? N Is patient fasting? N Is patient fasting? N IDENTIFY SPECIMEN ACUTE OR CONVALESCENT: UNK SGPT/Alt 10 U/L 7-56 [facility] ([facility]) {SOURCE: Random Void~NURSE COLLECTED? N Is patient fasting? N Is patient fasting? N IDENTIFY SPECIMEN ACUTE OR CONVALESCENT: UNK Afr Amer GFR Laboratory test result [facility] ([facility]) {SOURCE: Random Void~NURSE COLLECTED? N Is patient fasting? N Is patient fasting? N IDENTIFY SPECIMEN ACUTE OR CONVALESCENT: UNK Non-Aa GFR Laboratory test result [facility] ([facility]) {SOURCE: Random Void~NURSE COLLECTED? N Is patient fasting? N Is patient fasting? N IDENTIFY SPECIMEN ACUTE OR CONVALESCENT: UNK ID Date Data Source [id number] 04/14/2020 10:01:00 AM EDT [facility] ([facility]) Name Value Range Interpretation Code Description Data Cristina e(s) Supporting Document(s) Specific gravity of Urine Laboratory test result [facility] ([facility]) pH of Urine by Test strip Laboratory test result [facility] ([facility]) Leukocytes [#/area] in Urine sediment by Microscopy hi gh power field Laboratory [facility] result [facility] Appearance of Urine Laboratory test result [facility] ([facility]) Color of Urine Laboratory test result [facility] ([facility]) Protein [Presence] in Urine by Test strip Laboratory test result [facility] ([facility]) Glucose [Presence] in Urine Laboratory test result [facility] ([facility]) Bilirubin.total [Presence] in Urine by Test strip Laboratory test res ult [facility] ([facility]) Ketones [Presence] in Urine by Test strip Laboratory test result [facility] ([facility]) Ua Occult Blood Laboratory test result [facility] ([facility]) Urobilinogen [Mass/volume] in Urine by Test strip Laboratory test res ult [facility] ([facility]) Nitrite [Presence] in Urine by Test strip Laboratory test result [facility] ([facility]) Urinalysis Laboratory test result [facility] ([facility]) {SOURCE: Random Void~NURSE COLLECTED? N Is patient fasting? N Is patient fasting? N IDENTIFY SPECIMEN ACUTE OR CONVALESCENT: UNK Color Laboratory test result [facility] ([facility]) {SOURCE: Random Void~NURSE COLLECTED? N Is patient fasting? N Is patient fasting? N IDENTIFY SPECIMEN ACUTE OR CONVALESCENT: UNK Source Laboratory test result [facility] ([facility]) {SOURCE: Random Void~NURSE COLLECTED? N Is patient fasting? N Is patient fasting? N IDENTIFY SPECIMEN ACUTE OR CONVALESCENT: UNK pH 5 5-9 [facility] ([facility]) {SOURCE: Random Void~NURSE COLLECTED? N Is patient fasting? N Is patient fasting? N IDENTIFY SPECIMEN ACUTE OR CONVALESCENT: UNK Spec [place] 1.010 1.001-1.030 [facility] ([facility]) {SOURCE: Random Void~NURSE COLLECTED? N Is patient fasting? N Is patient fasting? N IDENTIFY SPECIMEN ACUTE OR CONVALESCENT: UNK Clarity Laboratory test result [facility] ([facility]) {SOURCE: Random Void~NURSE COLLECTED? N Is patient fasting? N Is patient fasting? N IDENTIFY SPECIMEN ACUTE OR CONVALESCENT: UNK Bilirubin Laboratory test result [facility] ([facility]) {SOURCE: Random Void~NURSE COLLECTED? N Is patient fasting? N Is patient fasting? N IDENTIFY SPECIMEN ACUTE OR CONVALESCENT: UNK Glucose Laboratory test result [facility] ([facility]) {SOURCE: Random Void~NURSE COLLECTED? N Is patient fasting? N Is patient fasting? N IDENTIFY SPECIMEN ACUTE OR CONVALESCENT: UNK Protein Laboratory test result [facility] ([facility]) {SOURCE: Random Void~NURSE COLLECTED? N Is patient fasting? N Is patient fasting? N IDENTIFY SPECIMEN ACUTE OR CONVALESCENT: UNK Ketone Laboratory test result [facility] ([facility]) {SOURCE: Random Void~NURSE COLLECTED? N Is patient fasting? N Is patient fasting? N IDENTIFY SPECIMEN ACUTE OR CONVALESCENT: UNK Blood Laboratory test result [facility] ([facility]) {SOURCE: Random Void~NURSE COLLECTED? N Is patient fasting? N Is patient fasting? N IDENTIFY SPECIMEN ACUTE OR CONVALESCENT: UNK Nitrite Laboratory test result [facility] ([facility]) {SOURCE: Random Void~NURSE COLLECTED? N Is patient fasting? N Is patient fasting? N IDENTIFY SPECIMEN ACUTE OR CONVALESCENT: UNK Urobilinogen Laboratory test result [facility] ([facility]) {SOURCE: Random Void~NURSE COLLECTED? N Is patient fasting? N Is patient fasting? N IDENTIFY SPECIMEN ACUTE OR CONVALESCENT: UNK Leuk Est 25 [facility] ([facility]) {SOURCE: Random Void~NURSE COLLECTED? N Is patient fasting? N Is patient fasting? N IDENTIFY SPECIMEN ACUTE OR CONVALESCENT: UNK RBC Laboratory test result [facility] ([facility]) {SOURCE: Random Void~NURSE COLLECTED? N Is patient fasting? N Is patient fasting? N IDENTIFY SPECIMEN ACUTE OR CONVALESCENT: UNK WBC Laboratory test result Abnormal (applies to non -numeric results) [facility] {SOURCE: Random Void~NURSE COLLECTED? N Is patient fasting? N Is patient fasting? N IDENTIFY SPECIMEN ACUTE OR CONVALESCENT: UNK Microscopic Laboratory test result M [facility] ([facility]) {SOURCE: Random Void~NURSE COLLECTED? N Is patient fasting? N Is patient fasting? N IDENTIFY SPECIMEN ACUTE OR CONVALESCENT: UNK Bacteria Laboratory test result Abnormal (applies to non -numeric results) [facility]) {SOURCE: Random Void~NURSE COLLECTED? N Is patient fasting? N Is patient fasting? N IDENTIFY SPECIMEN ACUTE OR CONVALESCENT: UNK Epithelial Laboratory test result [facility] ([facility]) {SOURCE: Random Void~NURSE COLLECTED? N Is patient fasting? N Is patient fasting? N IDENTIFY SPECIMEN ACUTE OR CONVALESCENT: UNK ID Date Data Source [id number] 04/14/2020 10:01:00 AM EDT [facility] ([facility]) Name Value Range Interpretation Code Description Data Cristina rce(s) Supporting Document(s) Cobalamin (Vitamin B12) [Mass/volume] in Serum or Plasma 1134 pg/mL [id number] [facility] {SOURCE: Random Void~NURSE COLLECTED? N Is patient fasting? N Is patient fasting? N IDENTIFY SPECIMEN ACUTE OR CONVALESCENT: UNK Calcidiol [Mass/volume] in Serum or Plasma 28 ng/mL [facility]) {SOURCE: Random Void~NURSE COLLECTED? N Is patient fasting? N Is patient fasting? N IDENTIFY SPECIMEN ACUTE OR CONVALESCENT: UNK Thyroxine (T4) free [Mass/volume] in Serum or Plasma 1.05 ng/dL 0.93- 1.[address] [facility] ([facility]) {SOURCE: Random Void~NURSE COLLECTED? N Is patient fasting? N Is patient fasting? N IDENTIFY SPECIMEN ACUTE OR CONVALESCENT: UNK Thyrotropin [Units/volume] in Serum or Plasma 1.60 uIU/mL 0.47-5.01 [facility]) {SOURCE: Random Void~NURSE COLLECTED? N Is patient fasting? N Is patient fasting? N IDENTIFY SPECIMEN ACUTE OR CONVALESCENT: UNK Iron [Mass/volume] in Serum or Plasma 59 ug/dL 42-135 [facility] {SOURCE: Random Void~NURSE COLLECTED? N Is patient fasting? N Is patient fasting? N IDENTIFY SPECIMEN ACUTE OR CONVALESCENT: UNK ID Date Data Source [id number] 04/14/2020 10:01:00 AM EDT [facility]) Name Value Range Interpretation Code Description Data Cristina rce(s) Supporting Document(s) Cholesterol [Mass/volume] in Serum or Plasma Laboratory test result [facility] ([facility]) High Density Lipoprotein Laboratory test result [facility] ([facility]) Cholesterol.total/Cholesterol in HDL [Molar ratio] in Serum or Plasma Laboratory test result [facility] ([facility]) Cholesterol in LDL/Cholesterol in HDL [Mass Ratio] in Serum or Plasma Laboratory test result [facility] ([facility]) Cholesterol in LDL [Mass/volume] in Serum or Plasma Laboratory test result [facility] ([facility]) Triglyceride [Mass/volume] in Serum or Plasma Laboratory test result [facility] ([facility]) Cve Panel Laboratory test result [facility] ([facility]) {SOURCE: Random Void~NURSE COLLECTED? N Is patient fasting? N Is patient fasting? N IDENTIFY SPECIMEN ACUTE OR CONVALESCENT: UNK Triglycerides 65 mg/dL 35-160 [facility] ([facility]) {SOURCE: Random Void~NURSE COLLECTED? N Is patient fasting? N Is patient fasting? N IDENTIFY SPECIMEN ACUTE OR CONVALESCENT: UNK Cholesterol 172 mg/dL 131-200 [facility] ([facility]) {SOURCE: Random Void~NURSE COLLECTED? N Is patient fasting? N Is patient fasting? N IDENTIFY SPECIMEN ACUTE OR CONVALESCENT: UNK Risk Factor 2.3 3.2-4.4 Below low normal [facility] ([facility]) {SOURCE: Random Void~NURSE COLLECTED? N Is patient fasting? N Is patient fasting? N IDENTIFY SPECIMEN ACUTE OR CONVALESCENT: UNK LDL 92 mg/dL 65-175 [facility] ([facility]) {SOURCE: Random Void~NURSE COLLECTED? N Is patient fasting? N Is patient fasting? N IDENTIFY SPECIMEN ACUTE OR CONVALESCENT: UNK HDL 74 mg/dL 29-86 [facility] ([facility]) {SOURCE: Random Void~NURSE COLLECTED? N Is patient fasting? N Is patient fasting? N IDENTIFY SPECIMEN ACUTE OR CONVALESCENT: UNK LDL/HDL 1.24 1.47-3.22 Below low normal [facility] ( [facility]) {SOURCE: Random Void~NURSE COLLECTED? N Is patient fasting? N Is patient fasting? N IDENTIFY SPECIMEN ACUTE OR CONVALESCENT: UNK ID Date Data Source [id number] 04/14/2020 10:01:00 AM EDT [facility] ([facility]) Name Value Range Interpretation Code Description Data Cristina rce(s) Supporting Document(s) Hemoglobin A1c/Hemoglobin.total in Blood 5.8 % 4.4-6.1 [facility] ([facility]) {SOURCE: Random Void~NURSE COLLECTED? N Is patient fasting? N Is patient fasting? N IDENTIFY SPECIMEN ACUTE OR CONVALESCENT: UNK ID Date Data Source [id number] 04/14/2020 10:01:00 AM EDT [facility] ([facility]) Name Value Range Interpretation Code Description Data Cristina rce(s) Supporting Document(s) Leukocytes [#/volume] in Blood by Automated count Laboratory test res ult [facility] ([facility]) Erythrocytes [#/volume] in Blood by Automated count Laboratory test result [facility] ([facility]) Hemoglobin [Mass/volume] in Blood Laboratory test result [facility] ([facility]) Erythrocyte mean corpuscular hemoglobin [Entitic mass] by Automated count Laboratory test result [facility] ([facility]) Erythrocyte mean corpuscular volume [Entitic volume] b y Automated count Laboratory test result [facility] ([facility]) Hematocrit [Volume Fraction] of Blood by Automated count Lab oratory test result [facility] ([facility]) Platelets [#/volume] in Blood by Automated count Laboratory test resu lt [facility] ([facility]) Erythrocyte mean corpuscular hemoglobin concentration [Mass/volume] by Automated count Laboratory test result [facility] ([facility]) Erythrocyte distribution width [Ratio] by Automated co unt Laboratory test result [facility] ([facility]) Lymphocytes/100 leukocytes in Body fluid by Manual count Lab oratory test result [facility] ([facility]) Platelet mean volume [Entitic volume] in Blood by Berny Herman Laboratory test result [facility] ([facility]) Neutrophils Laboratory test result M [facility] ([facility]) Band form neutrophils/100 leukocytes in Body fluid by Manual count Laboratory test result [facility] ([facility]) Basophils/100 leukocytes in Blood Laboratory test result [facility] ([facility]) Eosinophils/100 leukocytes in Body fluid by Manual count Lab oratory test result [facility] ([facility]) Monocytes Laboratory test result [facility] ([facility]) Lymphocytes [#/volume] in Blood Laboratory test result [facility] ([facility]) Basophils [#/volume] in Blood by Automated count Laboratory test resu lt [facility] ([facility]) Eosinophils [#/volume] in Blood by Automated count Laboratory test re sult [facility] ([facility]) Neutrophils [#/volume] in Blood by Automated count Laboratory test re [facility] Monocytes [#/volume] in Blood Laboratory test result [facility] ([facility]) CBC W/Automated Diff Laboratory test result [facility] ([facility]) {SOURCE: Random Void~NURSE COLLECTED? N Is patient fasting? N Is patient fasting? N IDENTIFY SPECIMEN ACUTE OR CONVALESCENT: UNK WBC 7.5 10^3/uL 4.2-11.0 [facility] ([facility]) {SOURCE: Random Void~NURSE COLLECTED? N Is patient fasting? N Is patient fasting? N IDENTIFY SPECIMEN ACUTE OR CONVALESCENT: UNK Hematocrit 41.2 % 37.0-47.0 [facility] ([facility]) {SOURCE: Random Void~NURSE COLLECTED? N Is patient fasting? N Is patient fasting? N IDENTIFY SPECIMEN ACUTE OR CONVALESCENT: UNK Hemoglobin 13.5 g/dL 12.0-16.0 [facility] ([facility]) {SOURCE: Random Void~NURSE COLLECTED? N Is patient fasting? N Is patient fasting? N IDENTIFY SPECIMEN ACUTE OR CONVALESCENT: UNK RBC 4.47 10^6/uL 4.20-5.40 [facility] ([facility]) {SOURCE: Random Void~NURSE COLLECTED? N Is patient fasting? N Is patient fasting? N IDENTIFY SPECIMEN ACUTE OR CONVALESCENT: UNK MCH 30.2 pg 27.0-34.0 [facility] ([facility]) {SOURCE: Random Void~NURSE COLLECTED? N Is patient fasting? N Is patient fasting? N IDENTIFY SPECIMEN ACUTE OR CONVALESCENT: UNK MCV 92.2 fL 81.0-101 [facility] ([facility]) {SOURCE: Random Void~NURSE COLLECTED? N Is patient fasting? N Is patient fasting? N IDENTIFY SPECIMEN ACUTE OR CONVALESCENT: UNK RDW 12.4 % 11.5-14.5 [facility] ([facility]) {SOURCE: Random Void~NURSE COLLECTED? N Is patient fasting? N Is patient fasting? N IDENTIFY SPECIMEN ACUTE OR CONVALESCENT: UNK MCHC 32.8 g/dL 31.0-36.0 [facility] ([facility]) {SOURCE: Random Void~NURSE COLLECTED? N Is patient fasting? N Is patient fasting? N IDENTIFY SPECIMEN ACUTE OR CONVALESCENT: UNK MPV 11.2 fL 7.4-10.4 Above high normal [facility] ([facility]) {SOURCE: Random Void~NURSE COLLECTED? N Is patient fasting? N Is patient fasting? N IDENTIFY SPECIMEN ACUTE OR CONVALESCENT: UNK Platelets 312 10^3/uL 150-450 [facility] ([facility]) {SOURCE: Random Void~NURSE COLLECTED? N Is patient fasting? N Is patient fasting? N IDENTIFY SPECIMEN ACUTE OR CONVALESCENT: UNK [place] 6.9 % 3.0-8.0 [facility] ([facility]) {SOURCE: Random Void~NURSE COLLECTED? N Is patient fasting? N Is patient fasting? N IDENTIFY SPECIMEN ACUTE OR CONVALESCENT: UNK Lymph 25.5 % 25.0-40.0 [facility] ([facility]) {SOURCE: Random Void~NURSE COLLECTED? N Is patient fasting? N Is patient fasting? N IDENTIFY SPECIMEN ACUTE OR CONVALESCENT: UNK Neut 65.7 % 37.0-80.0 [facility] ([facility]) {SOURCE: Random Void~NURSE COLLECTED? N Is patient fasting? N Is patient fasting? N IDENTIFY SPECIMEN ACUTE OR CONVALESCENT: UNK Baso 0.7 % 0.0-2.5 [facility] ([facility]) {SOURCE: Random Void~NURSE COLLECTED? N Is patient fasting? N Is patient fasting? N IDENTIFY SPECIMEN ACUTE OR CONVALESCENT: UNK Eos 0.8 % 0.0-7.0 [facility] ([facility]) {SOURCE: Random Void~NURSE COLLECTED? N Is patient fasting? N Is patient fasting? N IDENTIFY SPECIMEN ACUTE OR CONVALESCENT: UNK %NRBC 0.0 % 0.0-0.0 [facility] ([facility]) {SOURCE: Random Void~NURSE COLLECTED? N Is patient fasting? N Is patient fasting? N IDENTIFY SPECIMEN ACUTE OR CONVALESCENT: UNK %Ig 0.4 % 0.0-0.0 Above high normal [facility] ([facility]) {SOURCE: Random Void~NURSE COLLECTED? N Is patient fasting? N Is patient fasting? N IDENTIFY SPECIMEN ACUTE OR CONVALESCENT: UNK #Powell 0.52 10^3/uL 0.00-0.90 [facility] ([facility]) {SOURCE: Random Void~NURSE COLLECTED? N Is patient fasting? N Is patient fasting? N IDENTIFY SPECIMEN ACUTE OR CONVALESCENT: UNK #Lymph 1.92 10^3/uL 0.60-3.40 [facility] {SOURCE: Random Void~NURSE COLLECTED? N Is patient fasting? N Is patient fasting? N IDENTIFY SPECIMEN ACUTE OR CONVALESCENT: UNK #Neut 4.95 10^3/uL 2.00-6.90 [facility] ([facility]) {SOURCE: Random Void~NURSE COLLECTED? N Is patient fasting? N Is patient fasting? N IDENTIFY SPECIMEN ACUTE OR CONVALESCENT: UNK #Baso 0.05 10^3/uL 0.00-0.20 [facility] {SOURCE: Random Void~NURSE COLLECTED? N Is patient fasting? N Is patient fasting? N IDENTIFY SPECIMEN ACUTE OR CONVALESCENT: UNK #Eos 0.06 10^3/uL 0.00-0.70 [facility] {SOURCE: Random Void~NURSE COLLECTED? N Is patient fasting? N Is patient fasting? N IDENTIFY SPECIMEN ACUTE OR CONVALESCENT: UNK #NRBC 0.00 10^3/uL 0.00-0.00 [facility] {SOURCE: Random Void~NURSE COLLECTED? N Is patient fasting? N Is patient fasting? N IDENTIFY SPECIMEN ACUTE OR CONVALESCENT: UNK #Ig 0.03 10^3/uL 0.00-0.10 [facility] {SOURCE: Random Void~NURSE COLLECTED? N Is patient fasting? N Is patient fasting? N IDENTIFY SPECIMEN ACUTE OR CONVALESCENT: UNK RBC Morph Laboratory test result [facility] ([facility]) {SOURCE: Random Void~NURSE COLLECTED? N Is patient fasting? N Is patient fasting? N IDENTIFY SPECIMEN ACUTE OR CONVALESCENT: UNK Manual Diff Laboratory test result [facility] ([facility]) {SOURCE: Random Void~NURSE COLLECTED? N Is patient fasting? N Is patient fasting? N IDENTIFY SPECIMEN ACUTE OR CONVALESCENT: UNK ID Date Data Source [id number] 04/19/2020 08:19:00 AM EDT [facility] Name Value Range Interpretation Code Description Data Cristina rce(s) Supporting Document(s) CULTURE URINE [facility] _CULTURE URINE_$$[id number]$$[id number]$$[id number]$$[id number]$$[id number]$$[id number]$$983440$$159415$$464332$$ 536010$$295453$$274702$$092384$$930337$$923340$$266586$$891237$$435807$$844162$$ 206393$$624346$$456814$$877617$$551022$$268265$$789629$$[id number] -- Continued on next page --Patient: DEWEY Christopher Order: [id number] Page 2Culture: CULTURE URINE Status: Final ==== -- Continued on next page --Patient: DEWEY Christopher Order: [id number] Page 2Culture: CULTURE URINE Status: Prelim ===== -- Continued on next page --Patient: DEWEY Christopher Order: [id number] Page 2Culture: CULTURE URINE Status: Prelim =====$$[id number]$$[id number] DATE/TIME: 04/19/2020 08:08Culture: CULTURE URINE Status: FinalIsolate 1 Klebsiella aerogenes Flag: A . . . . . . .650,000-100,000 colony forming units per mL Previous result entered on 04/18/2020 12:29 ET Klebsiella aerogenesSusceptibility results being verified. Final report to follow. Previous result entered on 04/17/2020 04:31 ET Microbiological testing to rule out the presence of possible pathogensis in progress.Urine Culture,Comprehensive: [id number] aerogenes Flag: APatient: DEWEY Christopher Order: [id number] Page 3Culture: CULTURE URINE Status: Final ISOLATE 1 Klebsiella aerogenes Isolate 1Antibiotic SUNDAR IntUnits ug/mL ----Amoxicillin/Clavulanic Acid R R . . . . . .20-8Cefazolin R R . . . . . .76-0Cefepime S S . . . . . .6644-9Ceftriaxone S S . . . . . .141-2Cefuroxime S S . . . . . .145- 3Ciprofloxacin S S . . . . . .185-9Ertapenem S S . . . . . .65002-5Bppygfjbnc S S . . . . . .267-5Imipenem S S . . . . . .279-0Levofloxacin S S . . . . . .99996-3Fdqzmtyou S S . . . . . .6652-2Nitrofurantoin S S . . . . . .363-2Piperacillin/Tazobactam S S . . . . . .412-7Tetracycline S S . . . . . .496-0Tobramycin S S . . . . . .508-2Trimethoprim/Sulfa S S . . . . . .516-5P1 Test performed by: [facility] #: [id number] [address] [place] [address] [id number] [facility] [id number] Director : Sandip Mendez MD NPI #:[id number] Grade Reading Teacher : 04/18/20.XMT.SENT REF 04/18/20.XMT.SENT REF 04/19/20.XMT.SENT REF 04/19/20.CM .to [facility] via fax ID Date Data Source [id number] 04/19/2020 08:19:00 AM EDT [facility] Name Value Range Interpretation Code Description Data [facility](s) Supporting Document(s) Mumps virus IgG Ab [Units/volume] in Serum by Immunoassay >3 00.0 AU/mL Immune >10.9 [facility] Negative <9.0 Equivocal 9.0 - 10.9 Positive >10.9 A positive result generally indicates past exposure to Mumps virus or previous vaccination. ID Date Data Source [id number] 04/16/2020 10:19:00 AM EDT [facility] Name Value Range Interpretation Code Description Data [facility] rce(s) Supporting Document(s) Measles virus IgG Ab [Units/volume] in Serum by Immunoassay >300.0 AU/mL Immune >16.4 [facility] Negative <13.5 Equivocal 13.5 - 16.4 Positive >16.4 Presence of antibodies to Rubeola is presumptive evidence of immunity except when acute infection is suspected. ID Date Data Source [id number] 04/16/2020 10:19:00 AM EDT [facility] Name Value Range Interpretation Code Description Data Cristina rce(s) Supporting Document(s) Rubella virus IgM Ab [Units/volume] in Serum by Immunoassay <20.0 AU/mL 0.0-19.9 [facility] Negative <20.0 Equivocal 20.0 - 24.9 Positive >24.9 ID Date Data Source [id number] 04/16/2020 08:02:00 AM EDT [facility] Name Value Range Interpretation Code Description Data Cristina rce(s) Supporting Document(s) Hepatitis B virus surface Ab [Presence] in Serum Non Reactive [facility] Non Reactiv e: Inconsistent with immunity, less than 10 mIU/mL Reactive: Consistent with immunity, greater than 9.9 mIU/mL ID Date Data Source [id number] 04/14/2020 10:01:00 AM EDT [facility] ([facility]) Name Value Range Interpretation Code Description Data Cristina rce(s) Supporting Document(s) Erythrocyte sedimentation rate by Westergren method Laboratory test result [facility] ([facility]) C reactive protein [Mass/volume] in Serum or Plasma by High sensitivity method Laboratory test result [facility] ([facility]) ID Date Data Source [id number] 04/14/2020 10:01:00 AM EDT [facility] ([facility]) Name Value Range Interpretation Code Description Data Cristina rce(s) Supporting Document(s) Rubella virus IgG Ab [Units/volume] in Serum or Plasma by Immunoassay Laboratory test result [facility] ([facility]) ID Date Data Source [id number] 04/14/2020 10:01:00 AM EDT [facility] ([facility]) Name Value Range Interpretation Code Description Data Cristina rce(s) Supporting Document(s) Hepatitis B virus surface Ag [Presence] in Serum Laboratory test resu lt [facility] ([facility]) ID Date Data Source [id number] 04/14/2020 02:20:00 PM EDT [facility] Name Value Range Interpretation Code Description Data Cristina rce(s) Supporting Document(s) COMPREHENSIVE METABOLIC PANEL [facility] COMPREHENSIVE METABOLIC PANEL Sodium [Moles/volume] in Serum or Plasma 138 mEq/L 134 - 153 [facility] Potassium [Moles/volume] in Serum or Plasma 4.1 mEq/L 3.6 - 5.0 [facility] Chloride [Moles/volume] in Serum or Plasma 102 mEq/L 98 - 107 [facility] Carbon dioxide, total [Moles/volume] in Serum or Plasma 24 MEQ/L 22 - 30 [facility] Glucose [Mass/volume] in Serum or Plasma 112 MG/DL 65 - 110 H [facility] BUN 21 MG/DL 7 - 21 [facility] Creatinine [Mass/volume] in Serum or Plasma 0.8 MG/DL 0.7 - 1.5 [facility] BUN/CREAT 26 8 - 27 [facility] Protein [Mass/volume] in Serum or Plasma 7.7 G/DL 6.3 - 8.2 [facility] Albumin [Mass/volume] in Serum or Plasma 4.4 G/DL 3.9 - 5.0 [facility] Globulin [Mass/volume] in Serum by calculation 3.3 GM/DL 2.4 - 3.2 H [facility] A/G RATIO 1.3 0.8 - 2.0 [facility] Calcium [Mass/volume] in Serum or Plasma 9.7 MG/DL 8.4 - 10.2 [facility] Bilirubin.total [Mass/volume] in Serum or Plasma <0.7 MG/DL 0.2 - 1.3 [facility] Alkaline phosphatase [Enzymatic activity/volume] in Serum or Plasma 72 U/L 38 - 126 [facility] Aspartate aminotransferase [Enzymatic activity/volume] in Serum or Plasma 13 U/L 5 - 40 [facility] Alanine aminotransferase [Enzymatic activity/volume] in Seru m or Plasma 10 U/L 7 - 56 [facility] Anion gap 3 in Serum or Plasma 12.0 mmol/L 8.0 - 16.0 [facility] AGE 59 yrs [facility] NON-AA GFR >60 mL/min [facility] AFR AMER GFR >60 mL/min [facility] Male GFR In terprentation 20-49 yrs >60 mL/min Normal 50-59 yrs >56 mL/min Normal 60-69 yrs >49 mL/min Normal 70-79yrs >42 mL/min Normal 80 and above >35 mL/min Normal Female GFR Interpretation 20-39 yrs >60 mL/min Normal 40-49 yrs >58 mL/min Normal 50-59 yrs >51 mL/min Normal 60-69 yrs >45 mL/min Normal 70-79 yrs >39 mL/min Normal 80 and above >32 mL/min Normal ID Date Data Source [id number] 04/14/2020 02:19:00 PM EDT [facility] Name Value Range Interpretation Code Description Data Cristina rce(s) Supporting Document(s) CVE PANEL [facility] LIPID PANEL Cholesterol [Mass/volume] in Serum or Plasma 172 MG/DL 131 - 200 [facility] Deprecated Triglyceride [Mass/volume] in Serum or Plasma 65 MG/DL 3 5 - 160 [facility] HDL 74 MG/DL 29 - 86 [facility] Cholesterol in LDL [Mass/volume] in Serum or Plasma by Direc t assay 92 mg/dL 65 - 175 [facility] Cholesterol.total/Cholesterol in HDL [Mass Ratio] in Serum o r Plasma 2.3 3.2 - 4.4 L [facility] LDL/HDL 1.24 1.47 - 3.22 L [facility] CVE RISK CHOL/HDL LDL/HDLMEN: 1/2 AVERAGE 3.43 1.00 AVERAGE 4.97 3.55 2X AVERAGE 9.55 6.25 3X AVERAGE 23.99 7.99WOMEN: 1/2 AVERAGE 3.27 1.47 AVERAGE 4.44 3.22 2X AVERAGE 7.05 5.03 3X AVERAGE 11.04 6.14 ID Date Data Source [id number] 04/14/2020 02:19:00 PM EDT [facility] Name Value Range Interpretation Code Description Data Cristina rce(s) Supporting Document(s) C reactive protein [Mass/volume] in Serum or Plasma by High sensitivity method 2.47 MG/L 1.00 - 3.00 [facility]/S HS-CRP CUT-OFF: RELATIVE RISK: <1.0 mg/L Low 1.0 - 3.0 mg/L Average >3.0 mg/L High Optimally, the average of HS-CRP results repeated two weeks apart should be used for risk assessment. ID Date Data Source [id number] 04/14/2020 02:19:00 PM EDT [facility] Name Value Range Interpretation Code Description Data Cristina rce(s) Supporting Document(s) Iron [Mass/volume] in Serum or Plasma 59 UG/DL 42 - 135 [facility] ID Date Data Source [id number] 04/14/2020 02:15:00 PM [facility] Value Range Interpretation Code Description Data Cristina rce(s) Supporting Document(s) Rubella virus IgG Ab [Units/volume] in Serum 3.070 IU/ml [facility] NONREACT BRYON \\BLDo\\Rubella Immunity Interpretation\\BLDx\\ Non-reactive: <10 IU/mL Reactive: greater than or equal to 10 IU/mL A reactive result is presumptive evidence of immunity to Rubella, except when acute infection is suspected. ID Date Data Source [id number] 04/14/2020 02:15:00 PM EDT [facility] Name Value Range Interpretation Code Description Data Cristina rce(s) Supporting Document(s) Hepatitis B virus surface Ab [Units/volume] in Serum o r Plasma by Immunoassay NONREACTIVE NORMAL:NON REACTIVE [facility] ID Date Data Source [id number] 04/14/2020 02:08:00 PM [facility] Value Range Interpretation Code Description Data Cristina rce(s) Supporting Document(s) Cobalamin (Vitamin B12) [Mass/volume] in Serum or Plasma 1134 PG /ML 232 - 1245 [facility] ID Date Data Source [id number] 04/14/2020 02:08:00 PM [facility] Value Range Interpretation Code Description Data Cristina rce(s) Supporting Document(s) Thyroxine (T4) free index in Serum or Plasma by calculation 1.05 NG/DL 0.93 - 1.70 [facility] ID Date Data Source [id number] 04/14/2020 02:08:00 PM EDT [facility] Name Value Range Interpretation Code Description Data Cristina rce(s) Supporting Document(s) Thyrotropin [Units/volume] in Serum or Plasma by Detec tion limit <= 0.05 mIU/L 1.60 uIU/mL 0.47 - 5.01 [facility] ID Date Data Source [id number] 04/14/2020 02:08:00 PM EDT [facility] Name Value Range Interpretation Code Description Data Cristina rce(s) Supporting Document(s) Calcidiol [Moles/volume] in Serum or Plasma 28 NG/ML [facility] VITAMIN-D(2 5HYDROXY) Deficiency: <=20 ng/ml Insufficiency: 21-29 ng/ml Preferred level: => 30 ng/ml ID Date Data Source [id number] 04/14/2020 01:52:00 PM EDT [facility] Name Value Range Interpretation Code Description Data Cristina rce(s) Supporting Document(s) Erythrocyte sedimentation rate by Westergren method 17 mm/hr 0 - 30 [facility] SED RATE REENTER 17 [facility] ID Date Data Source [id number] 04/14/2020 01:49:00 PM EDT [facility] Name Value Range Interpretation Code Description Data Cristina rce(s) Supporting Document(s) [facility] COL[facility] yellow NORMAL: Yellow [facility] CLARITY clear NORMAL: Clear [facility] Specific gravity of Urine by Test strip 1.010 1.001 - 1.030 [facility] pH 5 5 - 9 [facility] Glucose [Mass/volume] in Urine by Test strip NORM NORMAL: Negat bryon [facility] Bilirubin.total [Presence] in Urine by Test strip NEG NORMAL: Negative [facility] Ketones [Presence] in Urine by Test strip NEG NORMAL: Negative [facility] Protein [Mass/volume] in Urine by Test strip NEG NORMAL: Negat bryon [facility] Nitrite [Presence] in Urine by Test strip NEG NORMAL: Negative [facility] BLOOD NEG NORMAL: Negative [facility] Leukocyte esterase [Presence] in Urine by Test strip 25 CONCHIS L: Negative [facility] Urobilinogen [Mass/volume] in Urine by Test strip NOR less allie n 1.0 mg/dL [facility] MICROSCOPIC See Below [facility] WBC 5 - 7 NORMAL: NONE SEEN A [facility] Erythrocytes [#/volume] in Urine by Test strip None Seen NORMAL: NON E SEEN [facility] EPITHELIAL None Seen NORMAL: NONE SEEN [facility] Bacteria [Presence] in Urine sediment by Light microscopy 2+ MOD NORMAL: NONE SEEN A [facility] ID Date Data Source [id number] 04/14/2020 01:44:00 PM EDT [facility] Name Value Range Interpretation Code Description Data Cristina rce(s) Supporting Document(s) Hemoglobin A1c/Hemoglobin.total in Blood 5.8 % 4.4 - 6.1 [facility] {A1]{HB] ID Date Data Source [id number] 04/14/2020 01:33:00 PM EDT [facility] Name Value Range Interpretation Code Description Data Cristina rce(s) Supporting Document(s) CBC W/AUTOMATED DIFF [facility] COMPLETE BLOOD COUNT Leukocytes [#/volume] in Blood by Automated count 7.5 10^3/uL 4.2 - 1 1.0 [facility] Erythrocytes [#/volume] in Blood by Automated count 4.47 10^6/uL 4. 20 - 5.40 [facility] Hemoglobin [Mass/volume] in Blood 13.5 g/dL 12.0 - 16.0 [facility] Hematocrit [Volume Fraction] of Blood by Automated count 41.2 % 3 7.0 - 47.0 [facility] Erythrocyte mean corpuscular volume [Entitic volume] by Auto mated count 92.2 fL 81.0 - 101 [facility] Erythrocyte mean corpuscular hemoglobin [Entitic mass] by Automated count 30.2 pg 27.0 - 34.0 [facility] Erythrocyte mean corpuscular hemoglobin concentration [Mass/volume] by Automated count 32.8 g/dL 31.0 - 36.0 [facility] Erythrocyte distribution width [Ratio] by Automated count 12.4 % 11.5 - 14.5 [facility] Platelets [#/volume] in Blood by Automated count 312 10^3/uL 150 - 45 0 [facility] Platelet mean volume [Entitic volume] in Blood by Automated count 11.2 fL 7.4 - 10.4 H [facility] Neutrophils/100 leukocytes in Blood by Automated count 65.7 % 37. 0 - 80.0 [facility] Lymphocytes/100 leukocytes in Blood by Manual count 25.5 % 25.0 - 40.0 [facility] Monocytes/100 leukocytes in Blood by Automated count 6.9 % 3.0 - 8.0 [facility] Eosinophils/100 leukocytes in Blood by Automated count 0.8 % 0.0 - 7.0 [facility] Basophils/100 leukocytes in Blood by Automated count 0.7 % 0.0 - 2.5 [facility] %IG 0.4 % 0.0 - 0.0 [facility] %NRBC 0.0 % 0.0 - 0.0 [facility] Neutrophils [#/volume] in Blood by Automated count 4.95 10^3/uL 2.00 - 6.90 [facility] Lymphocytes [#/volume] in Blood by Automated count 1.92 10^3/uL 0.60 - 3.40 [facility] Monocytes [#/volume] in Blood by Automated count 0.52 10^3/uL 0.00 - 0.90 [facility] Eosinophils [#/volume] in Blood by Automated count 0.06 10^3/uL 0.00 - 0.70 [facility] Basophils [#/volume] in Blood by Automated count 0.05 10^3/uL 0.00 - 0.20 [facility] #IG 0.03 10^3/uL 0.00 - 0.10 [facility] #NRBC 0.00 10^3/uL 0.00 - 0.00 [facility] MANUAL DIFF NOT INDICATED [facility] RBC MORPH NOT INDICATED [facility] Procedure Vital Signs ID Date Data Source UNK Name Value Range Interpretation Code Description Data Source(s) Body surface area Derived from formula 1.98 m2 1.[address] [facility] ([facility]) Body weight 79.834 kg 79.[address] [facility] ([facility]) [place] body weight 150 [lb_av] 150 [lb_av] [facility] T ([facility]) Body mass index (BMI) [Ratio] 25.3 kg/m2 25.3 k g/m2 [facility] ([facility]) Body weight 176.00 [lb_av] 176.00 [lb_av] [facility] T ([facility]) Body height 70 [in_i] 70 [in_i] [facility] ([facility]) 5'10" Diastolic blood pressure 82 mm[Hg] 82 mm[Hg] [facility] ([facility]) Systolic blood pressure 120 mm[Hg] 120 mm[Hg] M [facility] ([facility]) Body temperature 96.8 [degF] 96.8 [degF] [facility] ([facility]) Body surface area Derived from formula 1.91 m2 1.[address] [facility] ([facility]) Body mass index (BMI) [Ratio] 29.0 kg/m2 29.0 k g/m2 [facility] ([facility]) Body height 66 [in_i] 66 [in_i] [facility] ([facility]) 5'6" Body weight 81.648 kg 81.[address] [facility] ([facility]) Body weight 180.00 [lb_av] 180.00 [lb_av] [facility] T ([facility]) Body temperature 96.9 [degF] 96.9 [degF] [facility] ([facility]) Heart rate 73 /min 73 /min [facility] ([facility]) Diastolic blood pressure 74 mm[Hg] 74 mm[Hg] [facility] ([facility]) Systolic blood pressure 118 mm[Hg] 118 mm[Hg] [facility] Body temperature 97.5 [degF] 97.5 [degF] [facility] ([facility]) Body surface area Derived from formula 1.95 m2 1.[address] [facility] ([facility]) Body mass index (BMI) [Ratio] 25.9 kg/m2 25.9 k g/m2 [facility] ([facility]) Body height 69 [in_i] 69 [in_i] [facility] 5'9" Body weight 79.550 kg 79.550 kg [facility] ([facility]) Body weight 175.38 [lb_av] 175.38 [lb_av] [facility] T ([facility]) Oxygen saturation in Arterial blood by Pulse oximetry 98 % 98 % [facility] ([facility]) Respiratory rate 16 /min 16 /min [facility] ( [facility]) Body temperature 97.4 [degF] 97.4 [degF] [facility] Heart rate 83 /min 83 /min [facility] ([facility]) Diastolic blood pressure 82 mm[Hg] 82 mm[Hg] [facility] ([facility]) Systolic blood pressure 124 mm[Hg] 124 mm[Hg] [facility] Oxygen saturation in Arterial blood by Pulse oximetry 98 % 98 % [facility] Body temperature 98.7 [degF] 98.7 [degF] [facility] Heart rate 90 /min 90 /min [facility] Diastolic blood pressure 92 mm[Hg] 92 mm[Hg] [facility] Systolic blood pressure 132 mm[Hg] 132 mm[Hg] M EDENT ([facility])
[2020-09-19] MEDS ORDERED: ISOVUE-370 76% 100ML VIAL As Ordered ONE (09:25)
[2020-09-19 09:27] LABS: BASO # 0.1 10^3/uL (0.0-0.2); BASO % 1.2 % (0.0-1.0); EOS # 0.1 10^3/uL (0.0-0.5); EOS % 1.2 % (0.0-3.0); HEMATOCRIT 42.4 % (36.0-47.0); HEMOGLOBIN 13.6 g/dl (12.0-15.5); LYMPH # 1.9 10^3/uL (1.5-5.0); LYMPH % 32.5 % (24.0-44.0); MEAN CORPUSCULAR HEMOGLOBIN 29.5 pg (27.0-33.0); MEAN CORPUSCULAR HGB CONC 32.1 g/dl (32.0-36.5); MONO # 0.5 10^3/uL (0.0-0.8); MONO % 8.3 % (2.0-8.0); NEUTROPHILS # 3.3 10^3/uL (1.5-8.5); NEUTROPHILS % 56.5 % (36.0-66.0); PLATELET COUNT, AUTOMATED 296 10^3/uL (150-450); RED BLOOD COUNT 4.61 10^6/uL (4.00-5.40); WHITE BLOOD COUNT 5.9 10^3/uL (4.0-10.0)
[2020-09-19] MEDS ORDERED: NS 1,000 ML IV ONE (09:30)
[2020-09-19 09:40] LABS: INR 0.94; PARTIAL THROMBOPLASTIN TIME 32.2 SECONDS (24.2-38.5); PROTHROMBIN TIME 12.8 SECONDS (12.5-14.3)
[2020-09-19 09:53] LABS: BILIRUBIN,DIRECT 0.3 MG/DL (0.0-0.2); BILIRUBIN,TOTAL 0.9 MG/DL (0.2-1.0); TOTAL PROTEIN 7.9 GM/DL (6.4-8.2)
--- NOTE | 2020-09-19 10:12 | REP ---
INDICATION: sp colon ruq pain,rlq pain. COMPARISON: Renal ultrasound 03/10/2019. TECHNIQUE: Bolus of 100 mL Isovue 370 scanning through abdomen and pelvis with coronal and sagittal reconstructions. FINDINGS: CT abdomen: Linear scar atelectatic change in the left lateral base extending to the mid axillary line at the CP angle. Is also some linear fibro atelectatic change medial basal segment right lower lobe and some dependent atelectatic change in the region of lung. No infiltrate or effusion. No nodule or mass. Heart not grossly enlarged. There is no pericardial thickening or effusion. No hiatal hernia. There is some hepatomegaly with the right hepatic lobe vertical diameter of 19.4 cm. Liver contours are smooth. Left lobe not grossly enlarged. No hepatic mass, biliary dilatation or ascites. There is no splenomegaly or focal splenic lesion. Pancreas is without a mass, calcification, biliary dilatation within the pancreatic head or peripancreatic adenopathy/fluid. Adrenal glands unremarkable. Kidneys show a lower pole cyst on the right a 2 cm with simple cyst characteristics. Appears to be some scarring upper pole of the left kidney. No stones or hydronephrosis. In the hepatic flexure there is an adjacent linear metallic density about 14 mm long. I see no colitis or diverticulitis in the abdominal portion of colon. Most of the loops are collapsed. Small bowel loops show no abnormal dilatation. Some ill-defined mesenteric edema about small bowel loops in the mid abdomen to upper pelvis. This may reflect a nonspecific enteritis. Lung window review of all CT slices shows no perforation or free air. There is no ascites. Anterolisthesis of L4 on L5 grade 1 noted on sagittal reconstructions. There is disc space narrowing at that level and more at L5-S1 with vacuum phenomenon. Facet arthropathy without spondylolysis. Lower ribs were intact. CT pelvis: Sacrum, SI joints, pelvis and hips are without fracture or focal lesion minimal degenerative changes noted. Pelvic portion of the ureters without dilatation or stone bladder well filled without stone mass or wall thickening. Uterus not enlarged there is a few calcifications. It is anteverted. No pelvic mass or adenopathy. Distal left colon is collapsed as are the sigmoid and rectum without signs of colitis or diverticulitis. Small bowel loops in the deep pelvis fluid-filled with some minor mesenteric infiltration as a nonspecific enteritis finding. I do not see evidence for pelvic or inguinal adenopathy. No ventral or inguinal hernia. IMPRESSION: 1. Nonspecific infiltration of mesentery suggesting some enteritis without dilatation of small bowel loops, masses or adenopathy. Colon is not dilated or distended. There is no diverticulitis or definite colitis, most portions of the colon collapsed. No inflammatory changes adjacent. A 1.4 cm metallic density is abutting the hepatic flexure in the right upper quadrant. 2. A simple cyst lower pole right kidney with no complex features. Zone of scarring noted in the upper pole the left kidney. 3. Grade 1 anterolisthesis of L4 on 5 due to facet arthritis. Facet arthropathy L5-S1 and vacuum phenomenon with disc space narrowing at that level as well. No other significant finding. <Electronically signed by Ryan Arnold > 09/19/20 [id number]
--- OUTSIDE RECORDS SUMMARY | 2020-09-19 10:16 | CCD ---
Author Author [facility] Organization [facility] Address Unknown Phone Unavailable Care Team Providers Care Collections Technician Name Role Phone David Araya Unavailable Unavailable [...] PATRICIA MD Unavailable Unavailable LAU, REJI LIU BRICK SORTER Unavailable Unavailable LAU, REJI LIU BRICK SORTER Unavailable Unavailable LAU, REJI LIU BRICK SORTER Unavailable Unavailable LAU, REJI LIU BRICK SORTER Unavailable Unavailable LAU, REJI LIU BRICK SORTER Unavailable Unavailable LAU, REJI LIU BRICK SORTER Unavailable Unavailable LAU, REJI LIU BRICK SORTER Unavailable Unavailable LAU, REJI LIU BRICK SORTER Unavailable Unavailable LAU, REJI LIU BRICK SORTER Unavailable Unavailable LAU, REJI LIU BRICK SORTER Unavailable Unavailable LAU, REJI LIU BRICK SORTER Unavailable Unavailable LAU, REJI LIU BRICK SORTER Unavailable Unavailable LAU, REJI LIU BRICK SORTER Unavailable Unavailable LAU, REJI LIU BRICK SORTER Unavailable Unavailable LAU, REJI LIU BRICK SORTER Unavailable Unavailable LAU, REJI LIU BRICK SORTER Unavailable Unavailable LAU, REJI LIU BRICK SORTER Unavailable Unavailable LAU, REJI LIU BRICK SORTER Unavailable Unavailable LAU, REJI LIU BRICK SORTER Unavailable Unavailable LAU, REJI LIU BRICK SORTER Unavailable Unavailable LAU, REJI LIU BRICK SORTER Unavailable Unavailable LAU, REJI LIU BRICK SORTER Unavailable Unavailable LAU, REJI LIU BRICK SORTER Unavailable Unavailable KnowlesAshwin Cami PA-C Unavailable Unavailable [...] is protected by Article 27-F of the [place] State Public Health law. If you continue you may have access to information: Regarding HIV / AIDS; Provided by facilities licensed or operated by the [facility] Office of Mental Health; or Provided by the [facility] Office for People With Developmental Disabilities. If such information is present, then the following [facility] mandated warning applies: This information has [...] law may result in a fine or mcc sentence or both. A general authorization for the release of medical or other information is NOT sufficient authorization for further disc losure. Allergies and Adverse Reactions Type Description Substance Reaction Status Data Source(s ) Drug allergy BEE VENOM BEE VENOM SWELLING [facility] CLASS PENICILLINS (CLASS) PENICILLINS (CLASS) RASH SWELLING [facility] CLASS SULFA (sulfonamide) SULFA (sulfonamide) RASH [facility] Family History Family Member Name Family Member Gender Family Member Status Date o f Status Description Data Source(s) Unknown Female Problem [facility] ([facility]) Encounters Encounter Providers Location Date Indications Data Source(s ) Outpatient Attender: Cami COOKCConsultant: PATRICIA KING MD 06/06/2020 08:41:00 AM EST - 06/06/2020 08:41:00 AM [facility] Outpatient Attender: LIU LAU NPConsultant: PATRICIA ARCINIEGA MD 05/19/2020 09:01:00 AM EDT - 05/19/2020 09:01:00 AM EDT [facility] Outpatient Attender: LIU LAU NP Family Practice 05/19/2020 09 :00:00 AM EDT [facility] ([facility]) Outpatient Attender: Cami COOKCConsultant: PATRICIA KING MD 05/06/2020 09:10:00 AM EDT - 05/06/2020 09:10:00 AM EDT [facility] Outpatient Attender: Cami Knowles PA-C Family Practice 03/29 09:00:00 AM EDT [facility] ([facility] Outpatient Attender: Cami COOKCConsultant: PATRICIA KING MD 04/14/2020 08:56:00 AM EDT - 04/14/2020 08:56:00 AM EDT [facility] Outpatient Attender: David Araya PAConsultant: PATRICIA Finch 02/01/2020 09:44:00 AM EDT - 02/01/2020 09:44:00 AM EDT [facility] Immunizations Vaccine Date Status Description Data Source(s) As of March 1999, a 2-dose hepatitis B schedule for adolescents (11-15 year olds) was FDA approved for [employer]'s Recombivax HB adult formulation. Use code 43 for the 2-dose. This code should be used for any use of standard adult formulation of hepatitis B vaccine. 05/06/2020 10:11:00 AM EDT completed [facility] ([facility]) New in 2011. IIV4 05/06/2020 10:10:00 AM EDT completed [facility] ([facility]) Tdap 04/14/2020 10:02:00 AM EDT completed M [facility] ([facility]) Medications Medication Brand Name Start Date Product Form Dose Route Admi nistrative Instructions Pharmacy Instructions Status Indications Reaction Description Data Source(s) Suprep Bowel Prep Kit Suprep Bowel Prep Kit 08/23/2020 12:00:00 AM EST active [facility] ([facility], ) Bisacodyl 5 MG Delayed Release Oral Tablet [Dulcolax] Dulcol ax 08/23/2020 12:00:00 AM EST ORAL active M [facility]ENT ([facility], ) Cholecalciferol 74200 UNT Oral Tablet Vitamin D3 Ultra Poten cy 04/19/2020 12:00:00 AM EDT ORAL active M [facility] ([facility]) No Active Medications 04/14/2020 12:00:00 AM EDT completed [facility] ([facility]) Insurance Providers Payer name Policy type / Coverage type Policy ID Covered alliance party ID Covered alliance party's relationship to alfaro Policy Alfrao Plan Information [facility] COMMUNITY PLAN [facility] [id number] [facility] COMMUNTY PLAN [id number] 18 [id number] [facility] COMMUNITY PLAN XIX [id number] 18 [id number] [facility]) O [id number] S [id number] ANSI-Medicaid [id number] ANSI-Commercial [id number] ANSI-Medicaid [id number] [facility] [id number] [facility] [id number] SP [id number] [facility] Communty Plan Medicaid [id number] Self 10 [id number] UNHC AMERICHOICE XIX -HMO [id number] 18 [id number] [facility] Health Maintenance Organization (HMO) [id number] Self [id number] [facility]) O [id number] S [id number] [employer] COMMUNITY PLAN [facility] [id number] SP [id number] [facility] [id number] SP [id number] [facility] COMMUNTY PLAN MC [id number] 18 [id number] [facility] Communty Plan Medicaid [id number] Self [id number] [employer] COMMUNITY PLAN XIX [id number] [id number] [facility] Communty Plan Medicaid [id number] Self [id number] [employer] COMMUNITY PLAN [place] [id number] 18 [id number] [employer] Community Plan Medicaid [id number] Self [id number] [employer] COMMUNITY PLAN MCDO [id number] SP [id number] Unhc Community Plan Medicaid [id number] Self [id number] Unhc Community Plan Medicaid [id number] Self [id number] Unhc Community Plan Medicaid Self [employer] AMERICHOICE HMO [id number] 18 [id number] BLUE CROSS BLUE [facility] [id number] Problems, Conditions, and Diagnoses Code Display Name Description Problem Type Effective Dates Data Source(s) Z23 Encounter for immunization Encounter for immunization Diagnosis 06/06/2020 08:41:00 AM EST [facility] [id number] Encounter for gynecological examination (general) (routine) without abnormal findings Encounter for gynecological examination (general) (routine) without abnormal findings Diagnosis 05/19/2020 09:01:00 AM EDT [facility] Z0184 Encounter for antibody response examinat ion Encounter for antibody response examination Diagnosis 04/14/2020 08:56:00 AM EDT [facility] Z0000 Encounter for general adult medical exam ination without abnormal findings Encounter for general adult medical examination without abnormal findings Diagnosis 04/14/2020 08:56:00 AM EDT [facility] Z1389 Encounter for screening for other disord er Encounter for screening for other disorder Diagnosis 04/14/2020 08:56:00 AM EDT [facility] Z1211 Encounter for screening for malignant ne oplasm of colon Encounter for screening for malignant neoplasm of colon Diagnosis 04/14/2020 08:56:0 0 AM EDT [facility] 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 Diagnosis 04/14/2020 08:56:00 AM EDT [facility] [id number] Varicose veins of bilateral lower extrem ities with other complications Varicose veins of bilateral lower extremities with other complications Diagnosis 04/14/2020 08:56:00 AM EDT [facility] R5383 Other fatigue Other fatigue Diagnosis 04/14/2020 08:56:00 AM EDT [facility] [id number] Bitten or stung by nonvenomo us insect and other nonvenomous arthropods, subsequent encounter Bitten or stung by nonvenomous insect an d other nonvenomous arthropods, subsequent encounter Diagnosis 02/01/2020 09:44:00 AM EDT [facility] [id number] Insect bite (nonvenomous), right lower l eg, subsequent encounter Insect bite (nonvenomous), right lower leg, subsequent encounter Diagnosis 02/01/2020 09:44:00 AM EDT [facility] Surgeries/Procedures Procedure Description Date Indications Data Source(s) Brief Emotional/Behav Assessment W/ Scoring Doc Per Standard Inst 04/14/2020 12:00:00 AM EDT [facility] ([facility]) Admin Patient Focused Health Risk Assessment Instrument 04/14/2020 12:00:00 AM EDT [facility] ([facility]) Results ID Date Data Source [id number] 09/01/2020 01:00:00 PM EST [facility] Name Value Range Interpretation Code Description Data Cristina rce(s) Supporting Document(s) SARS coronavirus 2 RNA Not Detected [facility] [place] This lab was ordered by [facility] and reported by [facility]. ID Date Data Source [id number] 05/19/2020 09:48:00 AM EDT [facility] ([facility]) Name Value Range Interpretation Code Description Data Cristina rce(s) Supporting Document(s) Mammo Screening Bilateral with CAD Laboratory test result [facility] ([facility]) ID Date Data Source [id number] 04/14/2020 03:18:00 PM EDT [facility] ([facility]) Name Value Range Interpretation Code Description Data Cristina rce(s) Supporting Document(s) Mammo Screening Bilateral with CAD Laboratory test result [facility] ([facility]) ID Date Data Source [id number] 04/14/2020 10:01:00 AM EDT [facility] ([facility]) Name Value Range Interpretation Code Description Data Cristina rce(s) Supporting Document(s) Culture Urine Laboratory test result [facility] ([facility]) {SOURCE: Random Void~NURSE COLLECTED? N Is patient fasting? N Is patient fasting? N IDENTIFY SPECIMEN ACUTE OR CONVALESCENT: UNK ID Date Data Source [id number] 04/14/2020 10:01:00 AM EDT [facility] ([facility]) Name Value Range Interpretation Code Description Data Cristina rce(s) Supporting Document(s) C reactive protein [Mass/volume] in Serum or Plasma by High sensitivity method 2.47 mg/L 1.00-3.00 [facility] ([facility]) {SOURCE: Random Void~NURSE COLLECTED? N Is patient fasting? N Is patient fasting? N IDENTIFY SPECIMEN ACUTE OR CONVALESCENT: UNK Hepatitis B virus surface Ag [Presence] in Serum or Pl asma by Immunoassay Laboratory test result [facility] ([facility]) {SOURCE: Random Void~NURSE COLLECTED? N Is patient fasting? N Is patient fasting? N IDENTIFY SPECIMEN ACUTE OR CONVALESCENT: UNK Rubella virus IgG Ab [Units/volume] in Serum 3.070 IU/ml [facility] ([facility]) {SOURCE: Random Void~NURSE COLLECTED? N Is patient fasting? N Is patient fasting? N IDENTIFY SPECIMEN ACUTE OR CONVALESCENT: UNK ID Date Data Source [id number] 04/14/2020 10:01:00 AM EDT [facility] ([facility]) Name Value Range Interpretation Code Description Data Cristina rce(s) Supporting Document(s) Sed Rate 17 mm/hr 0-30 [facility] {SOURCE: Random Void~NURSE COLLECTED? N Is patient fasting? N Is patient fasting? N IDENTIFY SPECIMEN ACUTE OR CONVALESCENT: UNK Sed Rate Reenter 17 [facility] ([facility]) {SOURCE: Random Void~NURSE COLLECTED? N Is patient fasting? N Is patient fasting? N IDENTIFY SPECIMEN ACUTE OR CONVALESCENT: UNK ID Date Data Source [id number] 04/14/2020 10:01:00 AM EDT [facility] ([facility]) Name Value Range Interpretation Code Description Data Cristina rce(s) Supporting Document(s) Rubella virus IgM Ab [Units/volume] in Serum Laboratory test result 0.0-19.9 [facility] {SOURCE: Random Void~NURSE COLLECTED? N Is patient fasting? N Is patient fasting? N IDENTIFY SPECIMEN ACUTE OR CONVALESCENT: UNK Measles virus IgG Ab [Titer] in Serum by Immunofluores cence Laboratory test result [facility] ([facility]) {SOURCE: Random Void~NURSE COLLECTED? N Is patient fasting? N Is patient fasting? N IDENTIFY SPECIMEN ACUTE OR CONVALESCENT: UNK Mumps virus Ab [Units/volume] in Serum Laboratory test result [facility] ([facility]) {SOURCE: Random Void~NURSE COLLECTED? N Is patient fasting? N Is patient fasting? N IDENTIFY SPECIMEN ACUTE OR CONVALESCENT: UNK ID Date Data Source [id number] 04/14/2020 10:01:00 AM EDT [facility] ([facility]) Name Value Range Interpretation Code Description Data Cristina rce(s) Supporting Document(s) Hepatitis B virus surface Ab [Units/volume] in Serum b y Radioimmunoassay (CANDIDO) Laboratory test result [facility] ([facility]) {SOURCE: Random Void~NURSE COLLECTED? N Is patient fasting? N Is patient fasting? N IDENTIFY SPECIMEN ACUTE OR CONVALESCENT: UNK ID Date Data Source [id number] 04/14/2020 10:01:00 AM EDT [facility] ([facility]) Name Value Range Interpretation Code Description Data Cristina rce(s) Supporting Document(s) Z#Other Observations Laboratory test result [facility] ([facility]) Comprehensive Metabo Laboratory test result [facility] ([facility]) {SOURCE: Random Void~NURSE COLLECTED? N Is patient fasting? N Is patient fasting? N IDENTIFY SPECIMEN ACUTE OR CONVALESCENT: UNK Chloride 102 meq/L 98-107 [facility] ([facility]) {SOURCE: Random Void~NURSE COLLECTED? N Is patient fasting? N Is patient fasting? N IDENTIFY SPECIMEN ACUTE OR CONVALESCENT: UNK Potassium 4.1 meq/L 3.6-5.0 [facility] ([facility]) {SOURCE: Random Void~NURSE COLLECTED? N Is patient fasting? N Is patient fasting? N IDENTIFY SPECIMEN ACUTE OR CONVALESCENT: UNK Sodium 138 meq/L 134-153 [facility] ([facility]) {SOURCE: Random Void~NURSE COLLECTED? N Is patient fasting? N Is patient fasting? N IDENTIFY SPECIMEN ACUTE OR CONVALESCENT: UNK BUN 21 mg/dL 7-21 [facility] ([facility]) {SOURCE: Random Void~NURSE COLLECTED? N Is patient fasting? N Is patient fasting? N IDENTIFY SPECIMEN ACUTE OR CONVALESCENT: UNK Glucose 112 mg/dL 65-110 Above high normal [facility] ([facility]) {SOURCE: Random Void~NURSE COLLECTED? N Is patient fasting? N Is patient fasting? N IDENTIFY SPECIMEN ACUTE OR CONVALESCENT: UNK Co2 24 meq/L 22-30 [facility] ([facility]) {SOURCE: Random Void~NURSE COLLECTED? N Is patient fasting? N Is patient fasting? N IDENTIFY SPECIMEN ACUTE OR CONVALESCENT: UNK BUN/Creat 26 8-27 [facility] ([facility]) {SOURCE: Random Void~NURSE COLLECTED? N Is patient fasting? N Is patient fasting? N IDENTIFY SPECIMEN ACUTE OR CONVALESCENT: UNK Creatinine 0.8 mg/dL 0.7-1.5 [facility] ([facility]) {SOURCE: Random Void~NURSE COLLECTED? N Is patient fasting? N Is patient fasting? N IDENTIFY SPECIMEN ACUTE OR CONVALESCENT: UNK Globulin 3.3 GM/DL 2.4-3.2 Above high normal [facility] ([facility]) {SOURCE: Random Void~NURSE COLLECTED? N Is patient fasting? N Is patient fasting? N IDENTIFY SPECIMEN ACUTE OR CONVALESCENT: UNK Albumin 4.4 g/dL 3.9-5.0 [facility] ([facility]) {SOURCE: Random Void~NURSE COLLECTED? N Is patient fasting? N Is patient fasting? N IDENTIFY SPECIMEN ACUTE OR CONVALESCENT: UNK Total Protein 7.7 g/dL 6.3-8.2 [facility] ([facility]) {SOURCE: Random Void~NURSE COLLECTED? N Is patient fasting? N Is patient fasting? N IDENTIFY SPECIMEN ACUTE OR CONVALESCENT: UNK Total Bili Laboratory test result 0.2-1.3 ME D[facility] ([facility]) {SOURCE: Random Void~NURSE COLLECTED? N Is patient fasting? N Is patient fasting? N IDENTIFY SPECIMEN ACUTE OR CONVALESCENT: UNK Calcium 9.7 mg/dL 8.4-10.2 [facility] ([facility]) {SOURCE: Random Void~NURSE COLLECTED? N Is patient fasting? N Is patient fasting? N IDENTIFY SPECIMEN ACUTE OR CONVALESCENT: UNK A/G Ratio 1.3 0.8-2.0 [facility] ([facility]) {SOURCE: Random Void~NURSE COLLECTED? N Is patient fasting? N Is patient fasting? N IDENTIFY SPECIMEN ACUTE OR CONVALESCENT: UNK Sgot/Ast 13 U/L 5-40 [facility] ([facility]) {SOURCE: Random Void~NURSE COLLECTED? N Is patient fasting? N Is patient fasting? N IDENTIFY SPECIMEN ACUTE OR CONVALESCENT: UNK Alkaline Phos 72 U/L 38-126 [facility] ([facility]) {SOURCE: Random Void~NURSE COLLECTED? N Is patient fasting? N Is patient fasting? N IDENTIFY SPECIMEN ACUTE OR CONVALESCENT: UNK Age 59 yrs [facility] ([facility]) {SOURCE: Random Void~NURSE COLLECTED? N Is patient fasting? N Is patient fasting? N IDENTIFY SPECIMEN ACUTE OR CONVALESCENT: UNK Anion Gap 12.0 mmol/L 8.0-16.0 [facility] ([facility]) {SOURCE: Random Void~NURSE COLLECTED? N Is patient fasting? N Is patient fasting? N IDENTIFY SPECIMEN ACUTE OR CONVALESCENT: UNK SGPT/Alt 10 U/L 7-56 [facility] ([facility]) {SOURCE: Random Void~NURSE COLLECTED? N Is patient fasting? N Is patient fasting? N IDENTIFY SPECIMEN ACUTE OR CONVALESCENT: UNK Afr Amer GFR Laboratory test result [facility] ([facility]) {SOURCE: Random Void~NURSE COLLECTED? N Is patient fasting? N Is patient fasting? N IDENTIFY SPECIMEN ACUTE OR CONVALESCENT: UNK Non-Aa GFR Laboratory test result [facility] ([facility]) {SOURCE: Random Void~NURSE COLLECTED? N Is patient fasting? N Is patient fasting? N IDENTIFY SPECIMEN ACUTE OR CONVALESCENT: UNK ID Date Data Source [id number] 04/14/2020 10:01:00 AM EDT [facility] ([facility]) Name Value Range Interpretation Code Description Data Cristina e(s) Supporting Document(s) Specific gravity of Urine Laboratory test result [facility] ([facility]) pH of Urine by Test strip Laboratory test result [facility] ([facility]) Leukocytes [#/area] in Urine sediment by Microscopy hi gh power field Laboratory test result [facility]) Appearance of Urine Laboratory test result [facility] ([facility]) Color of Urine Laboratory test result [facility] ([facility]) Protein [Presence] in Urine by Test strip Laboratory test result [facility] ([facility]) Glucose [Presence] in Urine Laboratory test result [facility] ([facility]) Bilirubin.total [Presence] in Urine by Test strip Laboratory test res ult [facility] ([facility]) Ketones [Presence] in Urine by Test strip Laboratory test result [facility] ([facility]) Ua Occult Blood Laboratory test result [facility] ([facility]) Urobilinogen [Mass/volume] in Urine by Test strip Laboratory test res ult [facility] ([facility]) Nitrite [Presence] in Urine by Test strip Laboratory test result [facility] ([facility]) Urinalysis Laboratory test result [facility] ([facility]) {SOURCE: Random Void~NURSE COLLECTED? N Is patient fasting? N Is patient fasting? N IDENTIFY SPECIMEN ACUTE OR CONVALESCENT: UNK Color Laboratory test result [facility] ([facility]) {SOURCE: Random Void~NURSE COLLECTED? N Is patient fasting? N Is patient fasting? N IDENTIFY SPECIMEN ACUTE OR CONVALESCENT: UNK Source Laboratory test result [facility] ([facility]) {SOURCE: Random Void~NURSE COLLECTED? N Is patient fasting? N Is patient fasting? N IDENTIFY SPECIMEN ACUTE OR CONVALESCENT: UNK pH 5 5-9 [facility] ([facility]) {SOURCE: Random Void~NURSE COLLECTED? N Is patient fasting? N Is patient fasting? N IDENTIFY SPECIMEN ACUTE OR CONVALESCENT: UNK Spec [place] 1.010 1.001-1.030 [facility] ([facility]) {SOURCE: Random Void~NURSE COLLECTED? N Is patient fasting? N Is patient fasting? N IDENTIFY SPECIMEN ACUTE OR CONVALESCENT: UNK Clarity Laboratory test result [facility] ([facility]) {SOURCE: Random Void~NURSE COLLECTED? N Is patient fasting? N Is patient fasting? N IDENTIFY SPECIMEN ACUTE OR CONVALESCENT: UNK Bilirubin Laboratory test result [facility] ([facility]) {SOURCE: Random Void~NURSE COLLECTED? N Is patient fasting? N Is patient fasting? N IDENTIFY SPECIMEN ACUTE OR CONVALESCENT: UNK Glucose Laboratory test result [facility] ([facility]) {SOURCE: Random Void~NURSE COLLECTED? N Is patient fasting? N Is patient fasting? N IDENTIFY SPECIMEN ACUTE OR CONVALESCENT: UNK Protein Laboratory test result [facility] ([facility]) {SOURCE: Random Void~NURSE COLLECTED? N Is patient fasting? N Is patient fasting? N IDENTIFY SPECIMEN ACUTE OR CONVALESCENT: UNK Ketone Laboratory test result [facility] ([facility]) {SOURCE: Random Void~NURSE COLLECTED? N Is patient fasting? N Is patient fasting? N IDENTIFY SPECIMEN ACUTE OR CONVALESCENT: UNK Blood Laboratory test result [facility] ([facility]) {SOURCE: Random Void~NURSE COLLECTED? N Is patient fasting? N Is patient fasting? N IDENTIFY SPECIMEN ACUTE OR CONVALESCENT: UNK Nitrite Laboratory test result [facility] ([facility]) {SOURCE: Random Void~NURSE COLLECTED? N Is patient fasting? N Is patient fasting? N IDENTIFY SPECIMEN ACUTE OR CONVALESCENT: UNK Urobilinogen Laboratory test result [facility] ([facility]) {SOURCE: Random Void~NURSE COLLECTED? N Is patient fasting? N Is patient fasting? N IDENTIFY SPECIMEN ACUTE OR CONVALESCENT: UNK Leuk Est 25 [facility] ([facility]) {SOURCE: Random Void~NURSE COLLECTED? N Is patient fasting? N Is patient fasting? N IDENTIFY SPECIMEN ACUTE OR CONVALESCENT: UNK RBC Laboratory test result [facility] ([facility]) {SOURCE: Random Void~NURSE COLLECTED? N Is patient fasting? N Is patient fasting? N IDENTIFY SPECIMEN ACUTE OR CONVALESCENT: UNK WBC Laboratory test result Abnormal (applies to non -numeric results) [facility] {SOURCE: Random Void~NURSE COLLECTED? N Is patient fasting? N Is patient fasting? N IDENTIFY SPECIMEN ACUTE OR CONVALESCENT: UNK Microscopic Laboratory test result M [facility] ([facility]) {SOURCE: Random Void~NURSE COLLECTED? N Is patient fasting? N Is patient fasting? N IDENTIFY SPECIMEN ACUTE OR CONVALESCENT: UNK Bacteria Laboratory test result Abnormal (applies to non -numeric results) [facility] {SOURCE: Random Void~NURSE COLLECTED? N Is patient fasting? N Is patient fasting? N IDENTIFY SPECIMEN ACUTE OR CONVALESCENT: UNK Epithelial Laboratory test result [facility] ([facility]) {SOURCE: Random Void~NURSE COLLECTED? N Is patient fasting? N Is patient fasting? N IDENTIFY SPECIMEN ACUTE OR CONVALESCENT: UNK ID Date Data Source [id number] 04/14/2020 10:01:00 AM EDT [facility] ([facility]) Name Value Range Interpretation Code Description Data Cristina rce(s) Supporting Document(s) Cobalamin (Vitamin B12) [Mass/volume] in Serum or Plasma 1134 pg/mL [id number] [facility] {SOURCE: Random Void~NURSE COLLECTED? N Is patient fasting? N Is patient fasting? N IDENTIFY SPECIMEN ACUTE OR CONVALESCENT: UNK Calcidiol [Mass/volume] in Serum or Plasma 28 ng/mL [facility] {SOURCE: Random Void~NURSE COLLECTED? N Is patient fasting? N Is patient fasting? N IDENTIFY SPECIMEN ACUTE OR CONVALESCENT: UNK Thyroxine (T4) free [Mass/volume] in Serum or Plasma 1.05 ng/dL 0.93- 1.70 [facility] ([facility]) {SOURCE: Random Void~NURSE COLLECTED? N Is patient fasting? N Is patient fasting? N IDENTIFY SPECIMEN ACUTE OR CONVALESCENT: UNK Thyrotropin [Units/volume] in Serum or Plasma 1.60 uIU/mL 0.47-5.01 [facility] {SOURCE: Random Void~NURSE COLLECTED? N Is patient fasting? N Is patient fasting? N IDENTIFY SPECIMEN ACUTE OR CONVALESCENT: UNK Iron [Mass/volume] in Serum or Plasma 59 ug/dL 42-135 [facility] {SOURCE: Random Void~NURSE COLLECTED? N Is patient fasting? N Is patient fasting? N IDENTIFY SPECIMEN ACUTE OR CONVALESCENT: UNK ID Date Data Source [id number] 04/14/2020 10:01:00 AM EDT [facility] Name Value Range Interpretation Code Description Data Cristina rce(s) Supporting Document(s) Cholesterol [Mass/volume] in Serum or Plasma Laboratory test result [facility] ([facility]) High Density Lipoprotein Laboratory test result [facility] ([facility]) Cholesterol.total/Cholesterol in HDL [Molar ratio] in Serum or Plasma Laboratory test result [facility] ([facility]) Cholesterol in LDL/Cholesterol in HDL [Mass Ratio] in Serum or Plasma Laboratory test result [facility] ([facility]) Cholesterol in LDL [Mass/volume] in Serum or Plasma Laboratory test result [facility] ([facility]) Triglyceride [Mass/volume] in Serum or Plasma Laboratory test result [facility] ([facility]) Cve Panel Laboratory test result [facility] ([facility]) {SOURCE: Random Void~NURSE COLLECTED? N Is patient fasting? N Is patient fasting? N IDENTIFY SPECIMEN ACUTE OR CONVALESCENT: UNK Triglycerides 65 mg/dL 35-160 [facility] ([facility]) {SOURCE: Random Void~NURSE COLLECTED? N Is patient fasting? N Is patient fasting? N IDENTIFY SPECIMEN ACUTE OR CONVALESCENT: UNK Cholesterol 172 mg/dL 131-200 [facility] ([facility]) {SOURCE: Random Void~NURSE COLLECTED? N Is patient fasting? N Is patient fasting? N IDENTIFY SPECIMEN ACUTE OR CONVALESCENT: UNK Risk Factor 2.3 3.2-4.4 Below low normal [facility] ([facility]) {SOURCE: Random Void~NURSE COLLECTED? N Is patient fasting? N Is patient fasting? N IDENTIFY SPECIMEN ACUTE OR CONVALESCENT: UNK LDL 92 mg/dL 65-175 [facility] ([facility]) {SOURCE: Random Void~NURSE COLLECTED? N Is patient fasting? N Is patient fasting? N IDENTIFY SPECIMEN ACUTE OR CONVALESCENT: UNK HDL 74 mg/dL 29-86 [facility] ([facility]) {SOURCE: Random Void~NURSE COLLECTED? N Is patient fasting? N Is patient fasting? N IDENTIFY SPECIMEN ACUTE OR CONVALESCENT: UNK LDL/HDL 1.24 1.47-3.22 Below low normal [facility] ( [facility]) {SOURCE: Random Void~NURSE COLLECTED? N Is patient fasting? N Is patient fasting? N IDENTIFY SPECIMEN ACUTE OR CONVALESCENT: UNK ID Date Data Source [id number] 04/14/2020 10:01:00 AM EDT [facility] ([facility]) Name Value Range Interpretation Code Description Data Cristina rce(s) Supporting Document(s) Hemoglobin A1c/Hemoglobin.total in Blood 5.8 % 4.4-6.1 [facility] ([facility]) {SOURCE: Random Void~NURSE COLLECTED? N Is patient fasting? N Is patient fasting? N IDENTIFY SPECIMEN ACUTE OR CONVALESCENT: UNK ID Date Data Source [id number] 04/14/2020 10:01:00 AM EDT [facility] ([facility]) Name Value Range Interpretation Code Description Data Cristina rce(s) Supporting Document(s) Leukocytes [#/volume] in Blood by Automated count Laboratory test res ult [facility] ([facility]) Erythrocytes [#/volume] in Blood by Automated count Laboratory test result [facility] ([facility]) Hemoglobin [Mass/volume] in Blood Laboratory test result [facility] ([facility]) Erythrocyte mean corpuscular hemoglobin [Entitic mass] by Automated count Laboratory test result [facility] ([facility]) Erythrocyte mean corpuscular volume [Entitic volume] b y Automated count Laboratory test result [facility] ([facility]) Hematocrit [Volume Fraction] of Blood by Automated count Lab oratory test result [facility] ([facility]) Platelets [#/volume] in Blood by Automated count Laboratory test resu lt [facility] ([facility]) Erythrocyte mean corpuscular hemoglobin concentration [Mass/volume] by Automated count Laboratory test result [facility] ([facility]) Erythrocyte distribution width [Ratio] by Automated co unt Laboratory test result [facility] ([facility]) Lymphocytes/100 leukocytes in Body fluid by Manual count Lab oratory test result [facility] ([facility]) Platelet mean volume [Entitic volume] in Blood by Berny Herman Laboratory test result [facility] ([facility]) Neutrophils Laboratory test result [facility] ([facility]) Band form neutrophils/100 leukocytes in Body fluid by Manual count Laboratory test result [facility] ([facility]) Basophils/100 leukocytes in Blood Laboratory test result [facility] ([facility]) Eosinophils/100 leukocytes in Body fluid by Manual count Lab oratory test result [facility] ([facility]) Monocytes Laboratory test result [facility] ([facility]) Lymphocytes [#/volume] in Blood Laboratory test result [facility] ([facility]) Basophils [#/volume] in Blood by Automated count Laboratory test resu lt [facility] ([facility]) Eosinophils [#/volume] in Blood by Automated count Laboratory test re sult [facility] ([facility]) Neutrophils [#/volume] in Blood by Automated count Laboratory test re [facility] Monocytes [#/volume] in Blood Laboratory test result [facility] ([facility]) CBC W/Automated Diff Laboratory test result [facility] ([facility]) {SOURCE: Random Void~NURSE COLLECTED? N Is patient fasting? N Is patient fasting? N IDENTIFY SPECIMEN ACUTE OR CONVALESCENT: UNK WBC 7.5 10^3/uL 4.2-11.0 [facility] ([facility]) {SOURCE: Random Void~NURSE COLLECTED? N Is patient fasting? N Is patient fasting? N IDENTIFY SPECIMEN ACUTE OR CONVALESCENT: UNK Hematocrit 41.2 % 37.0-47.0 [facility] ([facility]) {SOURCE: Random Void~NURSE COLLECTED? N Is patient fasting? N Is patient fasting? N IDENTIFY SPECIMEN ACUTE OR CONVALESCENT: UNK Hemoglobin 13.5 g/dL 12.0-16.0 [facility] ([facility]) {SOURCE: Random Void~NURSE COLLECTED? N Is patient fasting? N Is patient fasting? N IDENTIFY SPECIMEN ACUTE OR CONVALESCENT: UNK RBC 4.47 10^6/uL 4.20-5.40 [facility] ([facility]) {SOURCE: Random Void~NURSE COLLECTED? N Is patient fasting? N Is patient fasting? N IDENTIFY SPECIMEN ACUTE OR CONVALESCENT: UNK MCH 30.2 pg 27.0-34.0 [facility] ([facility]) {SOURCE: Random Void~NURSE COLLECTED? N Is patient fasting? N Is patient fasting? N IDENTIFY SPECIMEN ACUTE OR CONVALESCENT: UNK MCV 92.2 fL 81.0-101 [facility] ([facility]) {SOURCE: Random Void~NURSE COLLECTED? N Is patient fasting? N Is patient fasting? N IDENTIFY SPECIMEN ACUTE OR CONVALESCENT: UNK RDW 12.4 % 11.5-14.5 [facility] ([facility]) {SOURCE: Random Void~NURSE COLLECTED? N Is patient fasting? N Is patient fasting? N IDENTIFY SPECIMEN ACUTE OR CONVALESCENT: UNK MCHC 32.8 g/dL 31.0-36.0 [facility] ([facility]) {SOURCE: Random Void~NURSE COLLECTED? N Is patient fasting? N Is patient fasting? N IDENTIFY SPECIMEN ACUTE OR CONVALESCENT: UNK MPV 11.2 fL 7.4-10.4 Above high normal [facility] ([facility]) {SOURCE: Random Void~NURSE COLLECTED? N Is patient fasting? N Is patient fasting? N IDENTIFY SPECIMEN ACUTE OR CONVALESCENT: UNK Platelets 312 10^3/uL 150-450 [facility] ([facility]) {SOURCE: Random Void~NURSE COLLECTED? N Is patient fasting? N Is patient fasting? N IDENTIFY SPECIMEN ACUTE OR CONVALESCENT: UNK [place] 6.9 % 3.0-8.0 [facility] ([facility]) {SOURCE: Random Void~NURSE COLLECTED? N Is patient fasting? N Is patient fasting? N IDENTIFY SPECIMEN ACUTE OR CONVALESCENT: UNK Lymph 25.5 % 25.0-40.0 [facility] ([facility]) {SOURCE: Random Void~NURSE COLLECTED? N Is patient fasting? N Is patient fasting? N IDENTIFY SPECIMEN ACUTE OR CONVALESCENT: UNK Neut 65.7 % 37.0-80.0 [facility] ([facility]) {SOURCE: Random Void~NURSE COLLECTED? N Is patient fasting? N Is patient fasting? N IDENTIFY SPECIMEN ACUTE OR CONVALESCENT: UNK Baso 0.7 % 0.0-2.5 [facility] ([facility]) {SOURCE: Random Void~NURSE COLLECTED? N Is patient fasting? N Is patient fasting? N IDENTIFY SPECIMEN ACUTE OR CONVALESCENT: UNK Eos 0.8 % 0.0-7.0 [facility] ([facility]) {SOURCE: Random Void~NURSE COLLECTED? N Is patient fasting? N Is patient fasting? N IDENTIFY SPECIMEN ACUTE OR CONVALESCENT: UNK %NRBC 0.0 % 0.0-0.0 [facility] ([facility]) {SOURCE: Random Void~NURSE COLLECTED? N Is patient fasting? N Is patient fasting? N IDENTIFY SPECIMEN ACUTE OR CONVALESCENT: UNK %Ig 0.4 % 0.0-0.0 Above high normal [facility] ([facility]) {SOURCE: Random Void~NURSE COLLECTED? N Is patient fasting? N Is patient fasting? N IDENTIFY SPECIMEN ACUTE OR CONVALESCENT: UNK #[place] 0.52 10^3/uL 0.00-0.90 [facility] ([facility]) {SOURCE: Random Void~NURSE COLLECTED? N Is patient fasting? N Is patient fasting? N IDENTIFY SPECIMEN ACUTE OR CONVALESCENT: UNK #Lymph 1.92 10^3/uL 0.60-3.40 [facility] {SOURCE: Random Void~NURSE COLLECTED? N Is patient fasting? N Is patient fasting? N IDENTIFY SPECIMEN ACUTE OR CONVALESCENT: UNK #Neut 4.95 10^3/uL 2.00-6.90 [facility] ([facility]) {SOURCE: Random Void~NURSE COLLECTED? N Is patient fasting? N Is patient fasting? N IDENTIFY SPECIMEN ACUTE OR CONVALESCENT: UNK #Baso 0.05 10^3/uL 0.00-0.20 [facility] {SOURCE: Random Void~NURSE COLLECTED? N Is patient fasting? N Is patient fasting? N IDENTIFY SPECIMEN ACUTE OR CONVALESCENT: UNK #Eos 0.06 10^3/uL 0.00-0.70 [facility] {SOURCE: Random Void~NURSE COLLECTED? N Is patient fasting? N Is patient fasting? N IDENTIFY SPECIMEN ACUTE OR CONVALESCENT: UNK #NRBC 0.00 10^3/uL 0.00-0.00 [facility] {SOURCE: Random Void~NURSE COLLECTED? N Is patient fasting? N Is patient fasting? N IDENTIFY SPECIMEN ACUTE OR CONVALESCENT: UNK #Ig 0.03 10^3/uL 0.00-0.10 [facility] {SOURCE: Random Void~NURSE COLLECTED? N Is patient fasting? N Is patient fasting? N IDENTIFY SPECIMEN ACUTE OR CONVALESCENT: UNK RBC Morph Laboratory test result [facility] ([facility]) {SOURCE: Random Void~NURSE COLLECTED? N Is patient fasting? N Is patient fasting? N IDENTIFY SPECIMEN ACUTE OR CONVALESCENT: UNK Manual Diff Laboratory test result [facility] ([facility]) {SOURCE: Random Void~NURSE COLLECTED? N Is patient fasting? N Is patient fasting? N IDENTIFY SPECIMEN ACUTE OR CONVALESCENT: UNK ID Date Data Source [id number] 04/19/2020 08:19:00 AM EDT [facility] Name Value Range Interpretation Code Description Data Cristina rce(s) Supporting Document(s) CULTURE URINE [facility] _CULTURE URINE_$$[id number]$$[id number]$$[id number]$$[id number]$$737395$$149015$$043127$$461530$$757631$$ 144276$$073410$$550209$$210117$$848137$$249362$$426122$$736767$$090413$$658211$$ 341174$$182771$$286111$$953043$$148971$$919018$$512682$$944122 -- Continued on next page --Patient: DEWEY Christopher Order: [id number] Page 2Culture: CULTURE URINE Status: Final ==== -- Continued on next page --Patient: DEWEY Christopher Order: [id number] Page 2Culture: CULTURE URINE Status: Prelim ===== -- Continued on next page --Patient: DEWEY Christopher Order: [id number] Page 2Culture: CULTURE URINE Status: Prelim =====$$[id number]$$[id number] DATE/TIME: 04/19/2020 08:08Culture: CULTURE URINE Status: FinalIsolate 1 Klebsiella aerogenes Flag: A . . . . . . .650,000-100,000 colony forming units per mL Previous result entered on 04/18/2020 12:29 ET Klebsiella aerogenesSusceptibility results being verified. Final report to follow. Previous result entered on 04/17/2020 04:31 ET Microbiological testing to rule out the presence of possible pathogensis in progress.Urine Culture,Comprehensive: K2Lzhmyjzkcu aerogenes Flag: APatient: DEWEY Christopher Order: [id number] Page 3Culture: CULTURE URINE Status: Final ISOLATE [...] S S . . . . . .62956-3Hxmsiqobxq S S . . . . . .267-5Imipenem S S . . . . . .279-0Levofloxacin S S . . . . . .77997-6Wchzwrcaz S S . . . . . .6652-2Nitrofurantoin S S . . . . . .363-2Piperacillin/Tazobactam S S . . . . . .412-7Tetracycline S S . . . . . .496-0Tobramycin S S . . . . . .508-2Trimethoprim/Sulfa S S . . . . . .516-5P1 Test performed by: [facility] #: [id number] [address] [place] [address] [id number] [facility] [id number] Director : Sandip Mendez MD NPI #:Fly Worker : 04/18/20.XMT.SENT REF 04/18/20.XMT.SENT REF 04/19/20.XMT.SENT REF 04/19/20.CM .to [facility] via fax ID Date Data Source [id number] 04/19/2020 08:19:00 AM EDT [facility] Name Value Range Interpretation Code Description Data [facility](s) Supporting Document(s) Mumps virus IgG Ab [Units/volume] in Serum by Immunoassay >3 00.0 AU/mL Immune >10.9 [facility] Negative <9.0 Equivocal 9.0 - 10.9 Positive >10.9 A positive result generally indicates past exposure to Mumps virus or previous vaccination. ID Date Data Source [id number] 04/16/2020 10:19:00 AM EDT [facility] Name Value Range Interpretation Code Description Data [facility] rce(s) Supporting Document(s) Measles virus IgG Ab [Units/volume] in Serum by Immunoassay >300.0 AU/mL Immune >16.4 [facility] Negative <13.5 Equivocal 13.5 - 16.4 Positive >16.4 Presence of antibodies to Rubeola is presumptive evidence of immunity except when acute infection is suspected. ID Date Data Source [id number] 04/16/2020 10:19:00 AM EDT [facility] Name Value Range Interpretation Code Description Data Cristina rce(s) Supporting Document(s) Rubella virus IgM Ab [Units/volume] in Serum by Immunoassay <20.0 AU/mL 0.0-19.9 [facility] Negative <20.0 Equivocal 20.0 - 24.9 Positive >24.9 ID Date Data Source [id number] 04/16/2020 08:02:00 AM EDT [facility] Name Value Range Interpretation Code Description Data Cristina rce(s) Supporting Document(s) Hepatitis B virus surface Ab [Presence] in Serum Non Reactive [facility] Non Reactiv e: Inconsistent with immunity, less than 10 mIU/mL Reactive: Consistent with immunity, greater than 9.9 mIU/mL ID Date Data Source [id number] 04/14/2020 10:01:00 AM EDT [facility] ([facility]) Name Value Range Interpretation Code Description Data Cristina rce(s) Supporting Document(s) Erythrocyte sedimentation rate by Westergren method Laboratory test result [facility] ([facility]) C reactive protein [Mass/volume] in Serum or Plasma by High sensitivity method Laboratory test result [facility] ([facility]) ID Date Data Source [id number] 04/14/2020 10:01:00 AM EDT [facility] ([facility]) Name Value Range Interpretation Code Description Data Cristina rce(s) Supporting Document(s) Rubella virus IgG Ab [Units/volume] in Serum or Plasma by Immunoassay Laboratory test result [facility] ([facility]) ID Date Data Source [id number] 04/14/2020 10:01:00 AM EDT [facility] ([facility]) Name Value Range Interpretation Code Description Data Cristina rce(s) Supporting Document(s) Hepatitis B virus surface Ag [Presence] in Serum Laboratory test resu lt [facility] ([facility]) ID Date Data Source [id number] 04/14/2020 02:20:00 PM EDT [facility] Name Value Range Interpretation Code Description Data Cristina rce(s) Supporting Document(s) COMPREHENSIVE METABOLIC PANEL [facility] COMPREHENSIVE METABOLIC PANEL Sodium [Moles/volume] in Serum or Plasma 138 mEq/L 134 - 153 [facility] Potassium [Moles/volume] in Serum or Plasma 4.1 mEq/L 3.6 - 5.0 [facility] Chloride [Moles/volume] in Serum or Plasma 102 mEq/L 98 - 107 [facility] Carbon dioxide, total [Moles/volume] in Serum or Plasma 24 MEQ/L 22 - 30 [facility] Glucose [Mass/volume] in Serum or Plasma 112 MG/DL 65 - 110 H [facility] BUN 21 MG/DL 7 - 21 [facility] Creatinine [Mass/volume] in Serum or Plasma 0.8 MG/DL 0.7 - 1.5 [facility] BUN/CREAT 26 8 - 27 [facility] Protein [Mass/volume] in Serum or Plasma 7.7 G/DL 6.3 - 8.2 [facility] Albumin [Mass/volume] in Serum or Plasma 4.4 G/DL 3.9 - 5.0 [facility] Globulin [Mass/volume] in Serum by calculation 3.3 GM/DL 2.4 - 3.2 H [facility] A/G RATIO 1.3 0.8 - 2.0 [facility] Calcium [Mass/volume] in Serum or Plasma 9.7 MG/DL 8.4 - 10.2 [facility] Bilirubin.total [Mass/volume] in Serum or Plasma <0.7 MG/DL 0.2 - 1.3 [facility] Alkaline phosphatase [Enzymatic activity/volume] in Serum or Plasma 72 U/L 38 - 126 [facility] Aspartate aminotransferase [Enzymatic activity/volume] in Serum or Plasma 13 U/L 5 - 40 [facility] Alanine aminotransferase [Enzymatic activity/volume] in Seru m or Plasma 10 U/L 7 - 56 [facility] Anion gap 3 in Serum or Plasma 12.0 mmol/L 8.0 - 16.0 [facility] AGE 59 yrs [facility] NON-AA GFR >60 mL/min [facility] AFR AMER GFR >60 mL/min [facility] Male GFR In terprentation 20-49 [...] >32 mL/min Normal ID Date Data Source [id number] 04/14/2020 02:19:00 PM EDT [facility] Name Value Range Interpretation Code Description Data Cristina rce(s) Supporting Document(s) CVE PANEL [facility] LIPID PANEL Cholesterol [Mass/volume] in Serum or Plasma 172 MG/DL 131 - 200 [facility] Deprecated Triglyceride [Mass/volume] in Serum or Plasma 65 MG/DL 3 5 - 160 [facility] HDL 74 MG/DL 29 - 86 [facility] Cholesterol in LDL [Mass/volume] in Serum or Plasma by Direc t assay 92 mg/dL 65 - 175 [facility] Cholesterol.total/Cholesterol in HDL [Mass Ratio] in Serum o r Plasma 2.3 3.2 - 4.4 L [facility] LDL/HDL 1.24 1.47 - 3.22 L [facility] CVE RISK CHOL/HDL LDL/HDLMEN: 1/2 AVERAGE 3.43 1.00 AVERAGE 4.97 3.55 2X AVERAGE 9.55 6.25 3X AVERAGE 23.99 7.99WOMEN: 1/2 AVERAGE 3.27 1.47 AVERAGE 4.44 3.22 2X AVERAGE 7.05 5.03 3X AVERAGE 11.04 6.14 ID Date Data Source [id number] 04/14/2020 02:19:00 PM EDT [facility] Name Value Range Interpretation Code Description Data Cristina rce(s) Supporting Document(s) C reactive protein [Mass/volume] in Serum or Plasma by High sensitivity method 2.47 MG/L 1.00 - 3.00 [facility]/S HS-CRP CUT-OFF: RELATIVE RISK: <1.0 mg/L Low 1.0 - 3.0 mg/L Average >3.0 mg/L High Optimally, the average of HS-CRP results repeated two weeks apart should be used for risk assessment. ID Date Data Source [id number] 04/14/2020 02:19:00 PM EDT [facility] Name Value Range Interpretation Code Description Data Cristina rce(s) Supporting Document(s) Iron [Mass/volume] in Serum or Plasma 59 UG/DL 42 - 135 [facility] ID Date Data Source [id number] 04/14/2020 02:15:00 PM [facility] Value Range Interpretation Code Description Data Cristina rce(s) Supporting Document(s) Rubella virus IgG Ab [Units/volume] in Serum 3.070 IU/ml [facility] NONREACT BRYON \\BLDo\\Rubella Immunity Interpretation\\BLDx\\ Non-reactive: <10 IU/mL Reactive: greater than or equal to 10 IU/mL A reactive result is presumptive evidence of immunity to Rubella, except when acute infection is suspected. ID Date Data Source [id number] 04/14/2020 02:15:00 PM EDT [facility] Name Value Range Interpretation Code Description Data Cristina rce(s) Supporting Document(s) Hepatitis B virus surface Ab [Units/volume] in Serum o r Plasma by Immunoassay NONREACTIVE NORMAL:NON REACTIVE [facility] ID Date Data Source [id number] 04/14/2020 02:08:00 PM [facility] Value Range Interpretation Code Description Data Cristina rce(s) Supporting Document(s) Cobalamin (Vitamin B12) [Mass/volume] in Serum or Plasma 1134 PG /ML 232 - 1245 [facility] ID Date Data Source [id number] 04/14/2020 02:08:00 PM [facility] Value Range Interpretation Code Description Data Cristina rce(s) Supporting Document(s) Thyroxine (T4) free index in Serum or Plasma by calculation 1.05 NG/DL 0.93 - 1.70 [facility] ID Date Data Source [id number] 04/14/2020 02:08:00 PM EDT [facility] Name Value Range Interpretation Code Description Data Cristina rce(s) Supporting Document(s) Thyrotropin [Units/volume] in Serum or Plasma by Detec tion limit <= 0.05 mIU/L 1.60 uIU/mL 0.47 - 5.01 [facility] ID Date Data Source [id number] 04/14/2020 02:08:00 PM EDT [facility] Name Value Range Interpretation Code Description Data Cristina rce(s) Supporting Document(s) Calcidiol [Moles/volume] in Serum or Plasma 28 NG/ML [facility] VITAMIN-D(2 5HYDROXY) Deficiency: <=20 ng/ml Insufficiency: 21-29 ng/ml Preferred level: => 30 ng/ml ID Date Data Source [id number] 04/14/2020 01:52:00 PM EDT [facility] Name Value Range Interpretation Code Description Data Cristina rce(s) Supporting Document(s) Erythrocyte sedimentation rate by Westergren method 17 mm/hr 0 - 30 [facility] SED RATE REENTER 17 [facility] ID Date Data Source [id number] 04/14/2020 01:49:00 PM EDT [facility] Name Value Range Interpretation Code Description Data Cristina rce(s) Supporting Document(s) [facility] COL[facility] yellow NORMAL: Yellow [facility] CLARITY clear NORMAL: Clear [facility] Specific gravity of Urine by Test strip 1.010 1.001 - 1.030 [facility] pH 5 5 - 9 [facility] Glucose [Mass/volume] in Urine by Test strip NORM NORMAL: Negat bryon [facility] Bilirubin.total [Presence] in Urine by Test strip NEG NORMAL: Negative [facility] Ketones [Presence] in Urine by Test strip NEG NORMAL: Negative [facility] Protein [Mass/volume] in Urine by Test strip NEG NORMAL: Negat bryon [facility] Nitrite [Presence] in Urine by Test strip NEG NORMAL: Negative [facility] BLOOD NEG NORMAL: Negative [facility] Leukocyte esterase [Presence] in Urine by Test strip 25 CONCHIS L: Negative [facility] Urobilinogen [Mass/volume] in Urine by Test strip NOR less allie n 1.0 mg/dL [facility] MICROSCOPIC See Below [facility] ital WBC 5 - 7 NORMAL: NONE SEEN A [facility] Erythrocytes [#/volume] in Urine by Test strip None Seen NORMAL: NON E SEEN [facility] EPITHELIAL None Seen NORMAL: NONE SEEN [facility] Bacteria [Presence] in Urine sediment by Light microscopy 2+ MOD NORMAL: NONE SEEN A [facility] ID Date Data Source [id number] 04/14/2020 01:44:00 PM EDT [facility] [facility] Value Range Interpretation Code Description Data Cristina rce(s) Supporting Document(s) Hemoglobin A1c/Hemoglobin.total in Blood 5.8 % 4.4 - 6.1 [facility] {A1]{HB] ID Date Data Source [id number] 04/14/2020 01:33:00 PM EDT [facility] Name Value Range Interpretation Code Description Data Cristina rce(s) Supporting Document(s) CBC W/AUTOMATED DIFF [facility] COMPLETE BLOOD COUNT Leukocytes [#/volume] in Blood by Automated count 7.5 10^3/uL 4.2 - 1 1.0 [facility] Erythrocytes [#/volume] in Blood by Automated count 4.47 10^6/uL 4. 20 - 5.40 [facility] Hemoglobin [Mass/volume] in Blood 13.5 g/dL 12.0 - 16.0 [facility] Hematocrit [Volume Fraction] of Blood by Automated count 41.2 % 3 7.0 - 47.0 [facility] Erythrocyte mean corpuscular volume [Entitic volume] by Auto mated count 92.2 fL 81.0 - 101 [facility] Erythrocyte mean corpuscular hemoglobin [Entitic mass] by Automated count 30.2 pg 27.0 - 34.0 [facility] Erythrocyte mean corpuscular hemoglobin concentration [Mass/volume] by Automated count 32.8 g/dL 31.0 - 36.0 [facility] Erythrocyte distribution width [Ratio] by Automated count 12.4 % 11.5 - 14.5 [facility] Platelets [#/volume] in Blood by Automated count 312 10^3/uL 150 - 45 0 [facility] Platelet mean volume [Entitic volume] in Blood by Automated count 11.2 fL 7.4 - 10.4 H [facility] Neutrophils/100 leukocytes in Blood by Automated count 65.7 % 37. 0 - 80.0 [facility] Lymphocytes/100 leukocytes in Blood by Manual count 25.5 % 25.0 - 40.0 [facility] Monocytes/100 leukocytes in Blood by Automated count 6.9 % 3.0 - 8.0 [facility] Eosinophils/100 leukocytes in Blood by Automated count 0.8 % 0.0 - 7.0 [facility] Basophils/100 leukocytes in Blood by Automated count 0.7 % 0.0 - 2.5 [facility] %IG 0.4 % 0.0 - [facility] % 0.0 - 0.0 [facility] Neutrophils [#/volume] in Blood by Automated count 4.95 10^3/uL 2.00 - 6.90 [facility] Lymphocytes [#/volume] in Blood by Automated count 1.92 10^3/uL 0.60 - 3.40 [facility] Monocytes [#/volume] in Blood by Automated count 0.52 10^3/uL 0.00 - 0.90 [facility] Eosinophils [#/volume] in Blood by Automated count 0.06 10^3/uL 0.00 - 0.70 [facility] Basophils [#/volume] in Blood by Automated count 0.05 10^3/uL 0.00 - 0.20 [facility] #IG 0.03 10^3/uL 0.00 - 0.10 [facility] #NRBC 0.00 10^3/uL 0.00 - 0.00 [facility] MANUAL DIFF NOT INDICATED [facility] RBC MORPH NOT INDICATED [facility] Procedure Vital Signs ID Date Data Source UNK Name Value Range Interpretation Code Description Data Source(s) Body surface area Derived from formula 1.98 m2 1.98 m2 [facility] ([facility]) Body weight 79.834 kg 79.834 kg [facility] ([facility]) [place] body weight 150 [lb_av] 150 [lb_av] [facility] ([facility]) Body mass index (BMI) [Ratio] 25.3 kg/m2 25.3 k g/m2 [facility] ([facility]) Body weight 176.00 [lb_av] 176.00 [lb_av] [facility] ([facility]) Body height 70 [in_i] 70 [in_i] [facility] ([facility]) 5'10" Diastolic blood pressure 82 mm[Hg] 82 mm[Hg] [facility] ([facility]) Systolic blood pressure 120 mm[Hg] 120 mm[Hg] [facility] Body temperature 96.8 [degF] 96.8 [degF] [facility] ([facility]) Body surface area Derived from formula 1.91 m2 1.91 m2 [facility] ([facility]) Body mass index (BMI) [Ratio] 29.0 kg/m2 29.0 k g/m2 [facility] ([facility]) Body height 66 [in_i] 66 [in_i] [facility] ([facility]) 5'6" Body weight 81.648 kg 81.648 kg [facility] ([facility]) Body weight 180.00 [lb_av] 180.00 [lb_av] [facility] ([facility]) Body temperature 96.9 [degF] 96.9 [degF] [facility] ([facility]) Heart rate 73 /min 73 /min [facility] ([facility]) Diastolic blood pressure 74 mm[Hg] 74 mm[Hg] [facility] ([facility]) Systolic blood pressure 118 mm[Hg] 118 mm[Hg] [facility] Body temperature 97.5 [degF] 97.5 [degF] [facility] ([facility]) Body surface area Derived from formula 1.95 m2 1.95 m2 [facility] ([facility]) Body mass index (BMI) [Ratio] 25.9 kg/m2 25.9 k g/m2 [facility] ([facility]) Body height 69 [in_i] 69 [in_i] [facility] 5'9" Body weight 79.550 kg 79.550 kg [facility] ([facility]) Body weight 175.38 [lb_av] 175.38 [lb_av] [facility] ([facility]) Oxygen saturation in Arterial blood by Pulse oximetry 98 % 98 % [facility] ([facility]) Respiratory rate 16 /min 16 /min [facility] ( [facility]) Body temperature 97.4 [degF] 97.4 [degF] [facility] Heart rate 83 /min 83 /min [facility] ([facility]) Diastolic blood pressure 82 mm[Hg] 82 mm[Hg] [facility] ([facility]) Systolic blood pressure 124 mm[Hg] 124 mm[Hg] [facility] Oxygen saturation in Arterial blood by Pulse oximetry 98 % 98 % [facility] Body temperature 98.7 [degF] 98.7 [degF] [facility] Heart rate 90 /min 90 /min [facility] Diastolic blood pressure 92 mm[Hg] 92 mm[Hg] [facility] Systolic blood pressure 132 mm[Hg] 132 mm[Hg] M [facility] ([facility])
--- NOTE | 2020-09-19 10:17 | REP ---
INDICATION: abdl pain. COMPARISON: Lung windows from CT abdomen this date TECHNIQUE: AP portable seated chest FINDINGS: Some hyperinflation noted. There is no pleural effusion or acute infiltrate. The linear fibroatelectatic change left lateral base on CT is poorly seen on this exam. Emphysematous changes mid and upper lung zone noted without pulmonary nodule or parenchymal mass. No lateral pleural thickening or apical scarring. Heart size not grossly enlarged. The aorta is mildly tortuous the without aneurysm. Airway intact. No widening of the mediastinum. Bones without acute finding. IMPRESSION: Hyperinflation with COPD, bullous emphysematous changes in the mid and upper lung zones and some underlying fibrotic change. No effusion, acute infiltrate or parenchymal mass. No cardiomegaly, edema, widening of the mediastinum, aortic aneurysm or other acute finding. <Electronically signed by Ryan Arnold > 09/19/20 1011
--- NOTE | 2020-09-19 10:30 | REP ---
INDICATION: sp colonosc 09/06 - ruq pain,rlq pain. COMPARISON: Comparison is made with today's CT study.. TECHNIQUE: Right upper quadrant sonography. FINDINGS: Scanning through the right upper quadrant of the abdomen demonstrates a normal sized, thin-walled gallbladder without evidence of stone or polyp. Common bile duct is normal measuring 0.4 cm in greatest diameter. No focal liver lesion is seen. Liver size is normal. No pancreatic abnormality is observed. There is no evidence of ascites. The right kidney measures 11.0 x 4.9 x 4.1 cm. There is a cyst in the right kidney measuring 2.0 cm in greatest diameter. IMPRESSION: Negative right upper quadrant sonography. <Electronically signed by Grabiel Prakash > 09/19/20 1020
[2020-09-19 13:02] VITALS: BP 145/72
--- NOTE | 2020-09-19 20:13 | ED PDOC ---
Post-Departure Follow-Up ct abd/p faxed to thierno addison and gena for fu Donny Vazquez MD Sep 19, 2020 20:13
== END 2020-09-19 13:18 | disposition home or self-care (01) ==
LOC: M ED 08:43
DX: R10.9 Unspecified abdominal pain (principal); N28.1 Cyst of kidney, acquired; M43.16 Spondylolisthesis, lumbar region; M51.36 Other intervertebral disc degeneration, lumbar region; E73.9 Lactose intolerance, unspecified; Z79.899 Other long term (current) drug therapy; Z88.0 Allergy status to penicillin; Z88.2 Allergy status to sulfonamides; Z91.018 Allergy to other foods; Z91.030 Bee allergy status
CPT/HCPCS: 71045; 74177; 76705; 80047; 80076; 82150; 83605; 83690; 85025; 85610; 85730; 87804; 96360; 96361; 99284; Q9967; U0003

== ENCOUNTER → 2021-04-28 | Outpatient (CLI) | payer OTHER ==
--- NOTE | 2021-04-28 10:05 | REP ---
INDICATION: CYST OF KIDNEY COMPARISON: None TECHNIQUE: Real time lam scale ultrasound examination using curved array transducer. FINDINGS: Right kidney measures 11.0 x 5.7 x 3.6 cm and includes 1.9 x 2.0 x 1.8 cm simple benign lower pole cyst. No hydronephrosis, nephrolithiasis or renal mass lesion. Left kidney measures 9.6 x 4.6 x 4.6 cm without hydronephrosis, nephrolithiasis, cystic or renal mass lesion. Bladder is grossly unremarkable. IMPRESSION: Right renal cyst. <Electronically signed by Kory Langford > 04/28/21 1001
== END ==
LOC: M RAD 09:29
PROVIDERS: ATTEND Physician Assistant
DX: N28.1 Cyst of kidney, acquired (principal)

== ENCOUNTER → 2021-07-14 | Outpatient (CLI) | payer OTHER | LOC: M WHC 10:07 | PROVIDERS: ATTEND Nurse Practitioner Adult Health | DX: Z12.31 Encounter for screening mammogram for malignant neoplasm of breast (principal) ==

== ENCOUNTER → 2022-07-16 | Outpatient (CLI) | payer OTHER | LOC: M WHC 08:48 | PROVIDERS: ATTEND Nurse Practitioner Family | DX: Z12.31 Encounter for screening mammogram for malignant neoplasm of breast (principal) ==

== ENCOUNTER → 2023-07-18 | Outpatient (CLI) | payer OTHER | LOC: M WHC 10:53 | PROVIDERS: ATTEND Nurse Practitioner Family | DX: Z12.31 Encounter for screening mammogram for malignant neoplasm of breast (principal) ==

== ENCOUNTER 2023-12-03 07:17 | Day surgery (SDC) | payer OTHER ==
[~2023-12-03] VITALS: Ht 177.8 cm; Wt 74.6 kg
[~2023-12-03 07:17] MED LIST changes: +COLL1CAP PO; +MUCI1TAB16 PO
[2023-12-03] MEDS: NS 1,000 ML IV ONE (07:33)
[2023-12-03 09:28] VITALS: TEMP 98.1
[2023-12-03 09:50] VITALS: BP 124/80; O2SAT 100
== END 2023-12-03 09:58 | disposition home or self-care (01) ==
LOC: M OPP 07:17
PROVIDERS: ATTEND Internal Medicine Gastroenterology
DX: Z12.11 Encounter for screening for malignant neoplasm of colon (principal); K62.1 Rectal polyp; K57.30 Diverticulosis of large intestine without perforation or abscess without bleeding; K29.70 Gastritis, unspecified, without bleeding; K44.9 Diaphragmatic hernia without obstruction or gangrene; K64.8 Other hemorrhoids; K64.4 Residual hemorrhoidal skin tags; Z86.010 Personal history of colon polyps; R11.2 Nausea with vomiting, unspecified; R10.13 Epigastric pain

== ENCOUNTER → 2024-07-24 | Outpatient (CLI) | payer OTHER | LOC: M WHC 11:18 | PROVIDERS: ATTEND Physician Assistant | DX: Z12.31 Encounter for screening mammogram for malignant neoplasm of breast (principal) ==